=== PATIENT | male | born 2000 | race African-American/Black ===

== ENCOUNTER 2023-06-15 08:47 | Emergency (ER) | payer SELFPAY ==
--- NOTE | ~2023-06-15 | XR_ITS ---
EXAMINATION: XR CHEST CLINICAL INFORMATION: Chest and back pain COMPARISON: None available. TECHNIQUE: 2 views of the chest were obtained. FINDINGS: No significant abnormality is noted involving the heart, lungs, mediastinum, bony thorax or soft tissues. XR/XR chest 2V IMPRESSION: Unremarkable examination.
[2023-06-15 09:12] VITALS: BP 128/66; PULSE 80; RESP 16; TEMP 36.8; O2SAT 99; BMI 20.5
--- NOTE | 2023-06-15 09:17 | ECG_ITS ---
Test Reason : chest pain Blood Pressure : / mmHG Vent. Rate : 086 BPM Atrial Rate : 086 BPM P-R Int : 154 ms QRS Dur : 086 ms QT Int : 340 ms P-R-T Axes : 092 079 068 degrees QTc Int : 406 ms Normal sinus rhythm Right atrial enlargement Borderline ECG No previous ECGs available Referred By: Generic ED Physician Electronically Signed By:Dariusz Lemus
[2023-06-15 09:35] LABS: MANUAL DIFF FLAG NO
[2023-06-15 09:38] LABS: Basophils Absolute Auto 0.1 X10*3/uL (0.0-0.2); Eosinophils Absolute Auto 0.2 X10*3/uL (0.0-0.4); Eosinophils Percent Auto 4.2 % (0-4); Hematocrit 42.8 % (42.0-52.0); Hemoglobin 14.2 g/dl (14.0-18.0); Imm Gran Abs Auto 0.01 X10*3/uL (0.00-0.03); Imm Gran Pct Auto 0.2 % (0.0-0.4); Lymphocytes Absolute Auto 1.4 X10*3/uL (1.2-4.9); Lymphocytes Percent Auto 27.2 % (20-40); Mean Corpuscular HGB Conc 33.2 g/dl (31.0-36.0); Mean Corpuscular Hemoglobin 30.3 pg (27.0-33.0); Mean Corpuscular Volume 91.5 fL (80.0-98.0); Mean Platelet Volume 10.2 fL (9.4-12.4); Monocytes Absolute Auto 0.5 X10*3/uL (0.1-1.2); Monocytes Percent Auto 9.8 % (2-11); Neutrophils Absolute Auto 2.9 x10*3/uL (2.0-8.3); Neutrophils Percent Auto 57.6 % (45-73); Platelet Count 316 X10*3/uL (160-400); Red Blood Count 4.68 X10*6/uL (4.60-5.80); Red Cell Distribution Width 11.8 % (11.0-16.0)
[2023-06-15 09:55] LABS: COVID-19 Test Negative (Negative); IDNOW Serial# 08D9AD1C
[2023-06-15 09:56] LABS: IDNOW Serial# 152EDE1D; Influenza A Negative (Negative); Influenza B2 Negative (Negative)
[2023-06-15 10:01] LABS: Anion Gap 15 (12-20); Blood Urea Nitrogen 12 mg/dL (9-16); Calcium 10.6 mg/dL (8.4-10.2); Carbon Dioxide 25 mmol/L (22-29); Chloride 103 mmol/L (96-108); Creatinine Clr Calc Pharmacy 117.9; Estimated Glomerular Filt Rate > 60; Glucose Random 95 mg/dL (60-115); Potassium 4.4 mmol/L (3.3-5.1); Sodium 139 mmol/L (135-145)
[2023-06-15 11:17] LABS: Troponin-I High Sensitivity < 2.7 ng/L (<3.5-35.0)
--- NOTE | 2023-06-15 11:25 | ED_ITS ---
HPI - Chest Pain General Chief Complaint: Chest Pain Stated Complaint: Back and Chest Pain Time Seen by Provider: 06/15/23 11:25 Source: patient and family Mode of arrival: ambulatory Limitations: no limitations History of Present Illness HPI narrative: 22 yo male with PMH of chest pain/back pain seen in [place] 3 years ago with negative workup including CT scan of the chest. He was started on unknown medication. He has been here since November of last year. He notes 2 weeks of chest pain on L side radiating to back worse with movements no respiratory difficulties, no pain with eating, no night sweats no weight loss. The last time he had this he took a medication and it got better but he and his father cannot remember the name. MD complaint: chest pain Onset (ago): week(s) (2) Timing of current episode: constant Prior episodes: Yes Onset: during rest Pain location: substernal and left chest Pain radiation: back Severity: moderate Quality: aching Relieving factors: rest Exacerbating factors: movement Context: other (hx of similar episode 3 years ago) Treatment prior to arrival: none Related Data Previous Rx's Medication Instructions Recorded cyclobenzaprine 10 mg tablet 10 mg PO TID PRN muscle spasm #20 06/15/23 tabs ibuprofen 600 mg tablet 600 mg PO Q6H PRN pain #30 tabs 06/15/23 Allergies Allergy/AdvReac Type Severity Reaction Status Date / Time No Known Allergies Allergy Verified 06/15/23 09:11 Review of Systems 2 Review of Systems: Constitutional : No Weight loss, No Fever, No Chills ENT/Mouth : No sore throat, No Rhinorrhea Eyes: No Eye Pain, No Swelling Cardiovascular : pos Chest Pain, no SOB, no Dyspnea on Exertion, No Orthopnea, No Edema, No Palpitations Respiratory : No Cough, No Sputum Gastrointestinal : no Nausea, No Vomiting, No Diarrhea, No abdominal Pain, No Hematochezia, No Melena Genitourinary : No Dysuria, No Urinary Frequency Musculoskeletal : No joint pain, No Myalgias, No Joint Swelling, pos back pain Skin : No Skin Lesions, No rash Neuro : No Weakness, No Numbness, No Dizziness, No Headache Psych : No Anxiety/Panic, No Depression Heme/Lymph: No Bruising, No Lymphadenopathy Endocrine : No Polyuria, No Polydipsia All other systems reviewed and are negative [facility] Past Medical History Attestation statement: The following information was validated with the patient. Medical History Back pain Chest pain Social History Social History (Updated 06/15/23 @ 11:36 by Evelia Mejia DO) Patient Tobacco Use Status: Never used Tobacco Advance Directives: No Advance Directives Information Provided: No Physical Exam 2 Vital Signs: Vital Signs: Last Vital Signs Temp 98.7 F 06/15/23 12:30 Pulse 72 06/15/23 12:30 Resp 14 06/15/23 12:30 BP 108/62 06/15/23 12:30 Pulse Ox 100 06/15/23 12:30 O2 Del Method Room Air 06/15/23 12:30 BMI result Body Mass Index 20.5 Appearance: Alert. Oriented X3. No acute distress. Eyes: Pupils equal, round and reactive to light. ENT: Pharynx normal. Neck: Normal inspection. Neck supple. CVS: Normal heart rate and rhythm. Pulses normal. Chest: ttp along L anterior chest wall Back: ttp along both paraspinal muscles that reproduces pain Respiratory: No respiratory distress. Breath sounds normal. Abdomen: Soft and nontender. Skin: Skin warm and dry. Normal skin color. Normal skin turgor. Extremities: No lower extremity edema. No calf ttp Neuro: Oriented X 3. No motor deficit. No sensory deficit. Medications Administered Discontinued Medications Generic Name Dose Route Start Last Admin Trade Name Andrewq PRN Reason Stop Dose Admin Acetaminophen 650 mg 06/15/23 11:34 06/15/23 12:29 Acetaminophen 325 Mg Tablet PO 06/15/23 11:35 650 mg ONCE ONE Administration Cyclobenzaprine HCl 10 mg 06/15/23 11:34 06/15/23 12:29 Cyclobenzaprine Hcl 10 Mg Tablet PO 06/15/23 11:35 10 mg ONCE ONE Administration Medical Decision Making Medical Decision Making MDM Narrative: 22 yo male with 2 weeks of chest pain into back but it is all reproduceable and 3 years ago had similar event with negative CT scan in [place]. He is NV intact distal pulses intact pain is worse with movements. He has no weight loss or night sweats. It does seem MSK. He is low prob of PE. I hear no murmur on exam. At this time troponin x 1, EKG, CXR and ddimer. Hx of CT scan negative in the past and pulses intact with 2 weeks of symptoms low susp for dissection. Differential Diagnosis Differential Diagnoses: The differential diagnosis associated with the presentation includes chest pain, mass, MSK pain Admission/Observation Consideration of admission/observation: Escalation of care including admission/observation considered trop, ddimer, EKG, and chest xray negative - doubt dissection VTE Lab Data MDM Lab Attestation statement: I reviewed the patient's lab results. 06/15/23 09:29 06/15/23 09:29 Labs: Lab Results 06/15/23 06/15/23 Range/Units 09:29 12:04 WBC 5.0 (4.8-10.8) X10*3/uL RBC 4.68 (4.60-5.80) X10*6/uL Hgb 14.2 (14.0-18.0) g/dl Hct 42.8 (42.0-52.0) % MCV 91.5 (80.0-98.0) fL MCH 30.3 (27.0-33.0) pg MCHC 33.2 (31.0-36.0) g/dl RDW 11.8 (11.0-16.0) % Plt Count 316 (160-400) X10*3/uL MPV 10.2 (9.4-12.4) fL Immature Gran % (Auto) 0.2 (0.0-0.4) % Neut % (Auto) 57.6 (45-73) % Lymph % (Auto) 27.2 (20-40) % [place] % (Auto) 9.8 (2-11) % Eos % (Auto) 4.2 H (0-4) % Baso % (Auto) 1.0 (0-2) % Lymph # (Auto) 1.4 (1.2-4.9) X10*3/uL [place] # (Auto) 0.5 (0.1-1.2) X10*3/uL Eos # (Auto) 0.2 (0.0-0.4) X10*3/uL Baso # (Auto) 0.1 (0.0-0.2) X10*3/uL Abs Immat Gran (auto) 0.01 (0.00-0.03) X10*3/uL Absolute Neuts (auto) 2.9 (2.0-8.3) x10*3/uL Absolute Nucleated RBC 0.000 (0.0-0.012) X10*3/uL Nucleated RBC % (auto) 0.0 (0.0-0.2) /100WBC D-Dimer High Sensitivty < 150 NG/ML Sodium 139 (135-145) mmol/L Potassium 4.4 (3.3-5.1) mmol/L Chloride 103 (96-108) mmol/L Carbon Dioxide 25 (22-29) mmol/L Anion Gap 15 (12-20) BUN 12 (9-16) mg/dL Creatinine 1.00 (0.5-1.4) mg/dL Estim Creat Clear Calc 117.9 Estimated GFR > 60 Random Glucose 95 (60-115) mg/dL Calcium 10.6 H (8.4-10.2) mg/dL Troponin I High Sens < 2.7 (<3.5-35.0) ng/L COVID-19 (CHRISTIE) Negative (Negative) COVID-19 Clin Com See Note Influenza Type A (EMILIA) Negative (Negative) Influenza Type B (EMILIA) Negative (Negative) Influenza A & B Note See Note Independent Interpretation I performed an independent interpretation of an: EKG and Plain X-Ray (normal ) Interpretation: Rate: 86 Rhythm: NSR Hinckley: normal Normal P waves. Normal ELLIOTT. Normal QRS complex. ST T wave : normal no YOLANDA qTC: 406 prior studies: no acute ischemia The study has been interpreted contemporaneously by me. . Radiology Impression Discussion of test interpretation with radiology: I have reviewed the radiologist's reading. Independent Historian Clinical information obtained from an independent historian. History obtained from or confirmed by: Parent Prescription Management I considered prescription management with: Other Discharge Plan Discharge Clinical Impression: Atypical chest pain Patient Disposition: Home, Self-Care Instructions: Chest Pain (ED) Additional Instructions: normal EKG, heart tests, negative blood clot test in lungs, chest xray normal return for worsening pain, fevers, weight loss, night sweats, or any other concerns. Prescriptions: New cyclobenzaprine 10 mg tablet 10 mg PO TID PRN (Reason: muscle spasm) Qty: 20 0RF ibuprofen 600 mg tablet 600 mg PO Q6H PRN (Reason: pain) Qty: 30 0RF Stand Alone Forms: Work/School Release
[2023-06-15] MEDS: Cyclobenzaprine HCl 10 MG TABLET PO (12:29)
[2023-06-15] MEDS: Acetaminophen 325 MG TABLET 650 MG PO (12:29)
[2023-06-15 12:30] VITALS: BP 108/62; PULSE 72; RESP 14; TEMP 37.1; O2SAT 100
[2023-06-15 12:42] LABS: D Dimer High Sensitivity < 150 NG/ML
[2023-06-15 13:02] LABS: Alanine Aminotransferase 8 U/L (0-40); Albumin Level 4.7 g/dL (3.5-5.0); Alkaline Phosphatase 40 U/L (39-117); Aspartate Amino Transferase 15 U/L (5-37); Bilirubin Direct 0.3 mg/dL (0.0-0.5); Bilirubin Total 0.8 mg/dL (0.0-1.0); Lipase 8 U/L (8-78)
== END 2023-06-15 13:34 | disposition home or self-care (01) ==
PROVIDERS: Emergency Provider Emergency Medicine
DX: R07.89 Other chest pain (principal); Z11.52 Encounter for screening for COVID-19
CPT/HCPCS: 71046; 80048; 80076; 83690; 84484; 85025; 85379; 87502; 87635; 93005; 99283

== ENCOUNTER → 2023-06-15 09:17 | Outpatient (BNV) | payer SELFPAY | PROVIDERS: Emergency Provider Emergency Medicine; Visit Provider Internal Medicine Cardiovascular Disease | DX: R07.9 Chest pain, unspecified (principal) | CPT/HCPCS: 93010 ==

== ENCOUNTER 2023-07-08 04:12 | Inpatient (IN) | payer MEDICAID, OTHER, SELFPAY ==
[2023-07-08] VITALS (13 sets, daily range): BP systolic 108–148; BP diastolic 50–77; PULSE 70–111; RESP 14–18; TEMP 36.6–37.4; O2SAT 95–100; BMI 21.1
--- NOTE | 2023-07-08 | ECG_ITS ---
Test Reason : AMS Blood Pressure : / mmHG Vent. Rate : 094 BPM Atrial Rate : 094 BPM P-R Int : 140 ms QRS Dur : 094 ms QT Int : 340 ms P-R-T Axes : 085 068 050 degrees QTc Int : 425 ms Normal sinus rhythm Right atrial enlargement Borderline ECG When compared with ECG of 15-JUN-2023 09:21, No significant change was found Referred By: Generic ED Physician Electronically Signed By:Dariusz Lemus
--- NOTE | ~2023-07-08 | CT_ITS ---
EXAMINATION: CT HEAD WITHOUT CONTRAST CLINICAL INFORMATION: Altered mental status. COMPARISON: None available. TECHNIQUE: Contiguous axial imaging was performed from the skull base to vertex without intravenous administration of contrast. This CT examination was performed using dose optimization techniques as appropriate, variously including the following: *Automated exposure control *Adjustment of mA and/or kV according to patient size (this includes techniques or standardized protocols for targeted exams where dose is matched to indication/reason for exam; i.e. extremities or head) *Use of iterative reconstruction technique DLP: 743 mGy-cm FINDINGS: The lateral, third and fourth ventricles are normally outlined. The cortical sulci and basal cisterns are normally outlined as well. There is no acute territorial defect, hemorrhage or midline shift. There is a 2.7 cm low-density structure left middle cranial fossa with attenuation similar to CSF. The extra-axial spaces are unremarkable otherwise unremarkable. Calvarium: Intact. Maxillofacial sinuses and mastoids: There is a right frontal sinus opacity. There is ethmoid sinus mucosal thickening. CT/CT head/brain wo IV con IMPRESSION: 1. No acute intracranial pathology. 2. Left middle cranial fossa arachnoid cyst. 3. Right frontal and ethmoid sinus disease.
[2023-07-08 04:49] LABS: Glucose, Whole Blood 139 mg/dL (60-115)
[2023-07-08 04:50] LABS: Hemoglobin 14.3 g/dl (14.0-18.0); Mean Corpuscular Hemoglobin 30.4 pg (27.0-33.0); Mean Corpuscular Volume 89.2 fL (80.0-98.0); Platelet Count 323 X10*3/uL (160-400); Red Blood Count 4.71 X10*6/uL (4.60-5.80); Red Cell Distribution Width 11.9 % (11.0-16.0)
[2023-07-08 04:51] LABS: WBC ABN SCTR FOR CBC 1; White Blood Count 7.1 X10*3/uL (4.8-10.8)
[2023-07-08 05:02] LABS: Anion Gap 12 (12-20); Blood Urea Nitrogen 15 mg/dL (9-16); Calcium 9.9 mg/dL (8.4-10.2); Carbon Dioxide 24 mmol/L (22-29); Chloride 106 mmol/L (96-108); Creatinine Clr Calc Pharmacy 105.5; Estimated Glomerular Filt Rate > 60; Ethanol < 10 mg/dL; Glucose Random 123 mg/dL (60-115); Potassium 3.4 mmol/L (3.3-5.1); Sodium 139 mmol/L (135-145)
[2023-07-08 05:12] LABS: Band Neutrophils Percent 2 % (3-5); Eosinophils Absolute Manual 0.1 X10*3/uL (0.0-0.4); Eosinophils Percent Manual 1 % (0-4); Lymphocytes Absolute Manual 0.8 X10*3/uL (1.2-4.9); Lymphocytes Percent Manual 11 % (20-40); Monocytes Absolute Manual 0.6 X10*3/uL (0.1-1.2); Monocytes Percent Manual 8 % (2-11); Neutrophils Absolute Manual 5.7 X10*3/uL (2.0-8.3); Neutrophils Percent Manual 78 % (45-73)
[2023-07-08 05:13] LABS: IDNOW Serial# 152EDE1D; Influenza A Negative (Negative); Influenza B2 Negative (Negative)
[2023-07-08 05:13] LABS: Platelet Estimate NORMAL (NORMAL); Platelet Morphology Comment NORMAL; RBC Morphology NORMAL
[2023-07-08 05:14] LABS: COVID-19 Test Negative (Negative); IDNOW Serial# 08D9AD1C
[2023-07-08 05:14] LABS: Toxic Vacuolation PRESENT
--- NOTE | 2023-07-08 05:31 | ED_ITS ---
HPI - General Adult General Chief complaint: Altered Mental Status Stated complaint: pt not acting right per his father? Time Seen by Provider: 07/08/23 05:06 Source: patient and family Mode of arrival: ambulatory Limitations: no limitations History of Present Illness HPI narrative: Patient comes to the emergency room accompanied by his father. According to the patient's father, the patient has not been acting right. The father states that patient asked him a question, and then towards 3 minutes he repeats the same question again. Patient states that for about 4-5 days he has not been feeling well. Patient is still learning [place]. Patient declined an elementary school music teacher. Patient is from [facility]. Patient requesting that his father interprets. Patient denies EtOH or drug use. Related Data Previous Rx's Medication Instructions Recorded cyclobenzaprine 10 mg tablet 10 mg PO TID PRN muscle spasm #20 06/15/23 tabs ibuprofen 600 mg tablet 600 mg PO Q6H PRN pain #30 tabs 06/15/23 Allergies Allergy/AdvReac Type Severity Reaction Status Date / Time No Known Allergies Allergy Verified 06/15/23 09:11 Review of Systems 2 Review of Systems: Constitutional : No Weight loss, No Fever, No Chills, No Night Sweats, No Fatigue, patient complaining of generalized malaise ENT/Mouth : No Hearing loss, No Ear Pain, No Nasal Congestion, No Sinus Pain, No Hoarseness, No sore throat, No Rhinorrhea, No Swallowing Difficulty Eyes: No Eye Pain, No Swelling, No Redness, No Foreign Body, No Discharge, No Vision Changes Cardiovascular : No Chest Pain, No SOB, No Dyspnea on Exertion, No Orthopnea, No Edema, No Palpitations Respiratory : No Cough, No Sputum, No Wheezing, No Smoke Exposure, No Dyspnea Gastrointestinal : No Nausea, No Vomiting, No Diarrhea, No Constipation, No abdominal Pain, No Hematochezia, No Melena Genitourinary : no irregular bleeding, No Dysuria, No Urinary Frequency, No Hematuria, No Urinary Incontinence, No Urgency, No Flank Pain, No Urinary Flow Changes, No Hesitancy Musculoskeletal : No joint pain, No Myalgias, No Joint Swelling Skin : No Skin Lesions, No rash Neuro : No Weakness, No Numbness, No Paresthesias, No Loss of Consciousness, No Dizziness, No Headache patient states that he does feel that his mentation is a bit different Psych : No Anxiety/Panic, No Depression, No SI/HI/AH/VH, No Social Issues, Heme/Lymph: No Bruising, No Bleeding,No Lymphadenopathy Endocrine : No Polyuria, No Polydipsia, No Temperature Intolerance PMF Past Medical History Medical History Back pain Chest pain Social History Social History (Updated 06/15/23 @ 11:36 by Evelia Mejia DO) Patient Tobacco Use Status: Never used Tobacco Smoked in Last 30 Days: No Use of substances other than those prescribed or required for medical reasons: No Advance Directives: No Advance Directives Information Provided: No Physical Exam ED Vital Signs: Vital Signs - 24 hr 07/08/23 04:24 07/08/23 06:03 Temperature 99.3 F 98.1 F Pulse Rate 100 90 Respiratory Rate 16 18 Blood Pressure 148/76 H 136/75 Pulse Oximetry 98 100 Oxygen Delivery Method Room Air Room Air BMI result Body Mass Index 21.1 Const Other: Appearance: Alert. Oriented X3. No acute distress. Eyes: Pupils equal, round and reactive to light. ENT: Pharynx normal. Neck: Normal inspection. Neck supple. No lymph nodes noted. No crepitus CVS: Normal heart rate and rhythm. Pulses normal. Normal S1 and S2 Respiratory: No respiratory distress. Breath sounds normal. No Wheezing. No rales Abdomen: Soft and nontender. No rigidity. No distention. Skin: Skin warm and dry. Normal skin color. Normal skin turgor. Extremities: No lower extremity edema. No Lacerations. No Rash Neuro: Oriented X 3. No motor deficit. No sensory deficit. Moving all extremities. No slurred speech. CN 2 through 12 grossly intact, seems a bit slow to answer Psych: calm, cooperative, normal affect Course Course Course Narrative: -all of patient's labs pending -head CT pending -I was informed by the patient's nurse that when the patient was alone in the room, patient was answering questions appropriately. However, when the patient's father got into the room, patient started acting a bit different. Medical Decision Making Medical Decision Making MDM Narrative: -my interpretation of labs: Normal hematology, no electrolyte abnormalities -my interpretation of head CT: No abuse intracranial abnormality, -Drugs of abuse, LFTs and ammonia level pending -if LFTs are normal, patient may need a behavioral health consult -sign-out given to my colleague Dr. Lilly Lab Data MDM Lab Attestation statement: I reviewed the patient's lab results. 07/08/23 04:44 07/08/23 04:44 Labs: Lab Results 07/08/23 07/08/23 07/08/23 Range/Units 04:44 04:45 04:53 WBC 7.1 (4.8-10.8) X10*3/uL RBC 4.71 (4.60-5.80) X10*6/uL Hgb 14.3 (14.0-18.0) g/dl Hct 42.0 (42.0-52.0) % MCV 89.2 (80.0-98.0) fL MCH 30.4 (27.0-33.0) pg MCHC 34.0 (31.0-36.0) g/dl RDW 11.9 (11.0-16.0) % Plt Count 323 (160-400) X10*3/uL MPV 10.0 (9.4-12.4) fL Immature Gran % (Auto) Cancelled Neut % (Auto) Cancelled Lymph % (Auto) Cancelled Sharkey % (Auto) Cancelled Eos % (Auto) Cancelled Baso % (Auto) Cancelled Lymph # (Auto) Cancelled Sharkey # (Auto) Cancelled Eos # (Auto) Cancelled Baso # (Auto) Cancelled Abs Immat Gran (auto) Cancelled Absolute Neuts (auto) Cancelled Absolute Nucleated RBC 0.000 (0.0-0.012) X10*3/uL Nucleated RBC % (auto) 0.0 (0.0-0.2) /100WBC Neutrophils % (Manual) 78 H (45-73) % Band Neutrophils % 2 L (3-5) % Lymphocytes % (Manual) 11 L (20-40) % Monocytes % (Manual) 8 (2-11) % Eosinophils % (Manual) 1 (0-4) % Abs Neuts (Manual) 5.7 (2.0-8.3) X10*3/uL Lymphocytes # (Manual) 0.8 L (1.2-4.9) X10*3/uL Monocytes # (Manual) 0.6 (0.1-1.2) X10*3/uL Eosinophils # (Manual) 0.1 (0.0-0.4) X10*3/uL Toxic Vacuolation PRESENT Platelet Estimate NORMAL (NORMAL) Plt Morphology Comment NORMAL RBC Morphology NORMAL Sodium 139 (135-145) mmol/L Potassium 3.4 D (3.3-5.1) mmol/L Chloride 106 (96-108) mmol/L Carbon Dioxide 24 (22-29) mmol/L Anion Gap 12 (12-20) BUN 15 (9-16) mg/dL Creatinine 1.15 (0.5-1.4) mg/dL Estim Creat Clear Calc 105.5 Estimated GFR > 60 POC Glucose 139 H (60-115) mg/dL Random Glucose 123 H (60-115) mg/dL Calcium 9.9 D (8.4-10.2) mg/dL Urine Color Urine Appearance Urine pH (5.0-9.0) Ur Specific [place] (1.005-1.025) Urine Protein (Neg-Trace) mg/dL Urine Glucose (UA) (Negative) mg/dL Urine Ketones (Negative) mg/dL Urine Blood (Negative) Urine Nitrite (Negative) Ur Leukocyte Esterase (Negative) Urine RBC (0-2) /HPF Urine WBC (0-5) /HPF Ur Squamous Epith Cells (0-2) /HPF Urine Bacteria (None Seen) Hyaline Casts (0-2) /LPF Ethyl Alcohol < 10 mg/dL COVID-19 (CHRISTIE) Negative (Negative) COVID-19 Clin Com See Note Influenza Type A (EMILIA) Negative (Negative) Influenza Type B (EMILIA) Negative (Negative) Influenza A & B Note See Note 07/08/23 Range/Units 06:14 WBC (4.8-10.8) X10*3/uL RBC (4.60-5.80) X10*6/uL Hgb (14.0-18.0) g/dl Hct (42.0-52.0) % MCV (80.0-98.0) fL MCH (27.0-33.0) pg MCHC (31.0-36.0) g/dl RDW (11.0-16.0) % Plt Count (160-400) X10*3/uL MPV (9.4-12.4) fL Immature Gran % (Auto) Neut % (Auto) Lymph % (Auto) Sharkey % (Auto) Eos % (Auto) Baso % (Auto) Lymph # (Auto) Sharkey # (Auto) Eos # (Auto) Baso # (Auto) Abs Immat Gran (auto) Absolute Neuts (auto) Absolute Nucleated RBC (0.0-0.012) X10*3/uL Nucleated RBC % (auto) (0.0-0.2) /100WBC Neutrophils % (Manual) (45-73) % Band Neutrophils % (3-5) % Lymphocytes % (Manual) (20-40) % Monocytes % (Manual) (2-11) % Eosinophils % (Manual) (0-4) % Abs Neuts (Manual) (2.0-8.3) X10*3/uL Lymphocytes # (Manual) (1.2-4.9) X10*3/uL Monocytes # (Manual) (0.1-1.2) X10*3/uL Eosinophils # (Manual) (0.0-0.4) X10*3/uL Toxic Vacuolation Platelet Estimate (NORMAL) Plt Morphology Comment RBC Morphology Sodium (135-145) mmol/L Potassium (3.3-5.1) mmol/L Chloride (96-108) mmol/L Carbon Dioxide (22-29) mmol/L Anion Gap (12-20) BUN (9-16) mg/dL Creatinine (0.5-1.4) mg/dL Estim Creat Clear Calc Estimated GFR POC Glucose (60-115) mg/dL Random Glucose (60-115) mg/dL Calcium (8.4-10.2) mg/dL Urine Color Dark Yellow Urine Appearance Clear Urine pH 6.0 (5.0-9.0) Ur Specific [place] 1.025 (1.005-1.025) Urine Protein 30 (1+) H (Neg-Trace) mg/dL Urine Glucose (UA) Negative (Negative) mg/dL Urine Ketones Trace (Negative) mg/dL Urine Blood Negative (Negative) Urine Nitrite Negative (Negative) Ur Leukocyte Esterase Negative (Negative) Urine RBC 0-2 (0-2) /HPF Urine WBC 0-5 (0-5) /HPF Ur Squamous Epith Cells 0-2 (0-2) /HPF Urine Bacteria None Seen (None Seen) Hyaline Casts 0-2 (0-2) /LPF Ethyl Alcohol mg/dL COVID-19 (CHRISTIE) (Negative) COVID-19 Clin Com Influenza Type A (EMILIA) (Negative) Influenza Type B (EMILIA) (Negative) Influenza A & B Note Independent Interpretation I performed an independent interpretation of an: CT Scan Radiology Impression Discussion of test interpretation with radiology: I have reviewed the radiologist's reading. Radiologist Impression: FINDINGS: The lateral, third and fourth ventricles are normally outlined. The cortical sulci and basal cisterns are normally outlined as well. There is no acute territorial defect, hemorrhage or midline shift. There is a 2.7 cm low-density structure left middle cranial fossa with attenuation similar to CSF. The extra-axial spaces are unremarkable otherwise unremarkable. Calvarium: Intact. Maxillofacial sinuses and mastoids: There is a right frontal sinus opacity. There is ethmoid sinus mucosal thickening. CT/CT head/brain wo IV con IMPRESSION: 1. No acute intracranial pathology. 2. Left middle cranial fossa arachnoid cyst. 3. Right frontal and ethmoid sinus disease. Critical Care Time Critical Care Time Critical Care Time: Yes Total Critical Care Time: 30 Attestation: I have personally provided critical care time. Time includes review of lab data, radiology results, discussion with consultants, and monitoring for potential decompensation. Intervention performed as documented. Discharge Plan Discharge Clinical Impression: Mental status alteration Patient Disposition: Still a Patient Prescriptions: No Action cyclobenzaprine 10 mg tablet 10 mg PO TID PRN (Reason: muscle spasm) Qty: 20 0RF ibuprofen 600 mg tablet 600 mg PO Q6H PRN (Reason: pain) Qty: 30 0RF
[2023-07-08 06:21] LABS: Appearance Urine Clear; Color Urine Dark Yellow; Glucose Urine UA Negative (Negative); Leukocyte Esterase Urine Negative (Negative); Nitrite Urine Negative (Negative); Specific Gravity - Urine 1.025 (1.005-1.025); UMIC TRIGGER UACC YES; Urine Blood Negative (Negative); Urine Ketones Trace mg/dL (Negative); Urine Protein 30 (1+) mg/dL (Neg-Trace)
[2023-07-08 06:24] LABS: Bacteria Urine None Seen (None Seen); Hyaline Casts Urine 0-2 /LPF (0-2); RBC Urine 0-2 /HPF (0-2); Squamous Epithelial Cell Urine 0-2 /HPF (0-2); WBC Urine 0-5 /HPF (0-5)
[2023-07-08 07:30] LABS: Amphetamine Screen Urine Not Detected (Not Detect); Barbiturates, Urine Not Detected (Not Detect); Benzodiazepines Screen Urine Not Detected (Not Detect); Cannabinoid Screen Urine Not Detected (Not Detect); Cocaine Screen Urine Not Detected (Not Detect); Fentanyl, urine Not Detected (Not Detect); Opiate Screen Urine Not Detected (Not Detect); Phencyclidine Screen Urine Not Detected (Not Detect)
[2023-07-08 07:33] LABS: Alanine Aminotransferase 10 U/L (0-40); Albumin Level 4.6 g/dL (3.5-5.0); Alkaline Phosphatase 43 U/L (39-117); Aspartate Amino Transferase 18 U/L (5-37); Bilirubin Direct 0.3 mg/dL (0.0-0.5); Bilirubin Total 0.8 mg/dL (0.0-1.0)
--- NOTE | 2023-07-08 07:51 | PC.NURSE ---
vss and up to date at this time aside from pt being sinus tachy on the environmental services aide. ED provider bedside assessing pt. pt vigorously shaking and attempting to get back to bed. pt easily redirected back to bed. pt not responding to this RN's questions at this time. no sob/wob noted. family bedside. plan of care ongoing.
[2023-07-08] MEDS: diphenhydrAMINE HCL 50 MG/ML VIAL 12.5 MG IVPUSH (08:24)
[2023-07-08] MEDS: Haloperidol Lactate 5 MG/ML VIAL IVPUSH (08:24)
[2023-07-08] MEDS: 0.9 % Sodium Chloride 1,000 ML 999 ML IVCONT (08:24)
--- NOTE | 2023-07-08 08:24 | PC.NURSE ---
pt remains disoriented at this time. pt continuously attempting to get out of bed and rip off hospital equipment. pt's family members helping hold pt back in bed so he does not harm himself by falling out of bed. ED provider aware. pt attempted to take out IV access. IV access wrapped in gauze for safety precautions. per provider order, pt medically restrained to promote safety at this time. effectiveness pending. restraint paperwork being filled out by this RN.
[2023-07-08] MEDS: LORazepam 2 MG/ML VIAL 1 MG IVPUSH (08:25)
--- NOTE | 2023-07-08 08:39 | PC.NURSE ---
pt sleeping post medication administration. resting comfortably in no apparent distress. respirations even and unlabored. call brantley placed within reach.
--- NOTE | 2023-07-08 09:28 | PC.NURSE ---
pt continues to rest in no apparent distress at this time w/ the lights dimmed. medication administration seemed to be effective at this point in time. pt asleep. respirations remain even and unlabored. call brantley placed within reach.
--- NOTE | 2023-07-08 14:01 | PC.NURSE ---
this RN spoke w/ behavioral health specialist (Allegra) in regards to plan of care at this time. specialist states that inpatient psychiatric bed search has been facilitated at this time. vss and up to date. pt still remains disoriented. pt extremely startled when this RN attempted to put blood pressure cuff on. unable to hold conversation w/ this pt as he does not respond when questions are asked. pt seemingly lethargic. respirations remain even and unlabored. call brantley placed within reach.
--- NOTE | 2023-07-08 16:50 | PC.NURSE ---
pt ripped out IV access despite being wrapped in gauze. bleeding controlled. new IV was not placed by this RN d/t no new orders placed by MD. psychiatric bed search still in progress via CARE team at this time. pt resting comfortably in bed in no apparent distress. vss and up to date. nsr on the cardiac specialist. respirations even and unlabored. call brantley placed within reach.
[2023-07-09] VITALS (8 sets, daily range): BP systolic 96–129; BP diastolic 59–80; PULSE 66–100; RESP 12–16; TEMP 36.3–36.8; O2SAT 95–99
--- NOTE | 2023-07-09 03:34 | PC.NURSE ---
Patient resting in a stretcher bed in no apparent distress at this time, respirations are even, unlabored, lights dimmed, call brantley within patient's reach.
--- NOTE | 2023-07-09 05:31 | PC.NURSE ---
Per Dr. Gaona continuous cardiac monitoring not needed at this time, verbal order received to d/c continuous cardiac monitoring and place order for regular diet.
--- NOTE | 2023-07-09 06:38 | PC.NURSE ---
Patient is awake, alert and oriented x4, VSS. Patient denies any pain. Patient requested orange juice, provided and tolerated well. Call brantley within patient's reach, plan of care ongoing.
--- NOTE | 2023-07-09 07:06 | PC.NURSE ---
patient sitting up in bed having breakfast, patient dad at bedside. patient is alert and oriented, calm and cooperative. respirations equal and unlabored, skin warm and dry.
--- NOTE | 2023-07-09 08:48 | MHC.CARE ---
RAD Team conducted [place] bedsearch, referral being reviewed by alejandro hi, Suzanna pickens, [facility], [facility] , [facility] , [facility] , [facility],and [place]. RAD team to f/u with facilities to see outcome
--- NOTE | 2023-07-09 12:24 | PC.NURSE ---
patient rang call brantley to have this RN and talk to him, patient sitting up in bed, explained to this RN that he disobeyed his father , patient explained that he listened to his friends instead of his dad, patient did not disclose what he did to disobey his dad. patient appears to be occupied by internal stimuli, patient observed to be watching something move around the room. patient is repetitive in asking for his father to come back, this RN reassured patient that his dad will come back to visit shortly. Patient disclosed that he is hearing voices telling him to harm himself, patient states he does not want to harm himself and that he does not want to harm anyone else. patent reassured he is safe here in the ED.
[2023-07-09] MEDS: OLANZapine 10 MG TABLET PO (12:48)
--- NOTE | 2023-07-09 15:23 | PC.NURSE ---
patient sat up, ate lunch, family came to visit, patient states he had a good visit with family. patient has remained calm and cooperative
--- NOTE | 2023-07-09 20:58 | PC.NURSE ---
Spoke to charge, no sitter needed for patient . Pt denies SI./HI
--- NOTE | 2023-07-09 21:58 | MHC.EDTECH ---
s pct assumed care of Patient at 2200 ,vitals taken ,urinal empty 900 ml out put ,Patient awake and is alert ,resting quietly in bed .
--- NOTE | 2023-07-09 23:37 | MHC.EDTECH ---
This tech took over care of patient at 2300,hourly rounds completed,patient is resting comfortably at this time and call brantley in reach
[2023-07-10 01:31] VITALS: BP 104/69; PULSE 87; RESP 16; TEMP 36.6; O2SAT 100
--- NOTE | 2023-07-10 01:32 | MHC.EDTECH ---
Hourly rounds and vitals completed,patient is resting comfortably and call brantley in reach
[2023-07-10 03:01] LABS: Syphilis Screen Nonreactive (Nonreactive)
[2023-07-10 03:13] LABS: HBS Num1 116.91 mIU/mL (0-7.99); HBc Num1 0.28 S/CO (0.00-0.79); HIV AB/AG Nonreactive (Nonreactive); HIV Num 1 0.05 S/CO (0.00-0.99); Hepatitis A Antibody IgM 0.22 Index (0-0.79); Hepatitis B Core Antibody Nonreactive (Nonreactive); Hepatitis B Surface Antigen Negative (Negative); ~HepC Num1 0.29 S/CO (0.00-0.79); ~Hepatitis A Antibody IgM Nonreactive (Nonreactive); ~Hepatitis B Surface Antibody REACTIVE (Nonreactive); ~Hepatitis C Antibody Nonreactive (Nonreactive)
--- NOTE | 2023-07-10 03:38 | MHC.EDTECH ---
Hourly rounds completed,patient resting at this time and call brantley within reach
[2023-07-10 05:38] VITALS: RESP 18
--- NOTE | 2023-07-10 05:39 | MHC.EDTECH ---
Hourly rounds completed,patient refused vitals ,RN was made aware,Resp.rate WNL,and patient is resting at this time.Call brantley in reach
--- NOTE | 2023-07-10 10:29 | MHC.CARE ---
RAD Team conducted statewide bedsearch, referral being reviewed by alejandro hi, [facility], [facility], [facility] , [facility] , [facility] , [facility] and [place]. RAD team to f/u with facilities to see outcome
[2023-07-10 11:01] LABS: COVID-19 Test Negative (Negative); IDNOW Serial# 9DB6401D
--- NOTE | 2023-07-10 11:36 | PC.NURSE ---
assumed care of pt at 0700. pt awake and alert, soft spoken. ate breakfast this morning and then called t/w into room to ask why am I here? I do not know why I am here. pt now resting quietly in bed, eyes closed, rr even/unlabored. awaiting for placement as statewide bed search is being performed. call brantley within reach. plan of care ongoing.
--- NOTE | 2023-07-10 15:40 | PC.NURSE ---
pt father, Rodrick, sts pt is acting more normal today. brought in [facility] for pt. pt appears well. plan of care ongoing.
[2023-07-10 15:44] VITALS: BP 110/70; PULSE 100; RESP 16; TEMP 36.2; O2SAT 97
[2023-07-10 17:25] VITALS: BP 117/67; PULSE 103; RESP 16; TEMP 37.3; O2SAT 98
--- NOTE | 2023-07-10 17:55 | PC.NURSE ---
Pt refused flu vaccine
--- NOTE | 2023-07-10 18:01 | PC.ADMIT ---
Addendum entered by Rebecca Rosa RN 07/10/23 19:36: Pt received IV Ativan and Haldol on 07/08. Original Note: Jordan is a 22-year-old male admitted from [facility] main ED to M3 on a CV for treatment of unspecified psychosis. Pt immediately signed 3-day. Tox screen negative. Pt relocated from [facility] to the 6 months ago. Per crisis eval, pt was brought into ED by his family who reported pt has been forgetful, repeating questions, and being uncoordinated/unsteady on his feet. When pt was admitted to the ED, pt was disoriented and attempting to pull out his IV and was given Haldol 5mg and Ativan 1mg IV as a restraint on 07/10. When pt arrived to M3, pt was alert, oriented, pleasant and cooperative. Affect was flat. Pt lacks insight into situation and doesn't know why he's here. Pt denies any medical issues. Pt denies substance use and alcohol use. Thought process is linear and organized. Pt reports difficulty sleeping. Pt does not have any outside providers. Pt denies SI/HI/AH/VH but will reach out to staff if thoughts occur. Pt placed on 15 minute safety checks.
[2023-07-10 18:32] VITALS: BMI 19.6
[2023-07-11 07:59] VITALS: BP 115/77; PULSE 99; RESP 18; TEMP 36.2; O2SAT 99
[2023-07-11 08:21] LABS: Glucose, Whole Blood 82 mg/dL (60-115)
[2023-07-11 08:27] LABS: Estimated Average Glucose 74 mg/dL; Hemoglobin A1c % 4.2 % (<6.0)
[2023-07-11 08:39] LABS: Cholesterol 161 mg/dL (<200); HDL Cholesterol 37 mg/dL (>40); LDL Cholesterol Calculated 109 mg/dL (<100); Triglycerides 76 mg/dL (<150)
[2023-07-11 08:56] LABS: Free T4 (Free Thyroxine) 1.18 ng/dL (0.71-1.85); Thyroid Stimulating Hormone 0.63 uIU/mL (0.32-4.0)
[2023-07-11 09:08] LABS: Folate 11.2 ng/mL (> or = 4.0); Vitamin B12 803 pg/mL (200-900)
[2023-07-11] MEDS: Acetaminophen 325 MG TABLET 650 MG PO (12:56)
[2023-07-11] MEDS: HaloperidoL 1 MG TABLET 2 MG PO (12:56)
--- NOTE | 2023-07-11 14:49 | HO.PSYADMNOT ---
HPI Date of Service: 07/11/23 Chief Complaint: pt not acting right per his father? HPI Narrative: per CARE team nancy tracy self-presented 07/08 to [facility] ED with family members with family c/o pt's acting funny over the past 4-5 days. family reported pt has been forgetful, asking for questions to be repeated, unsteady on his feet, uncoordinated. pt was chemically restrained with haldol 5 and ativan 1 IV for safety (pt was attempting to pull out IV, get out of bed, appeared disoriented). CARE team was initially unable to engage with pt, who stared blankly at CARE team staff in response to questions. by 07/10, pt was able to speak with CARE team staff. he denied psych Sx and reported being in a good mood. he did not recall the events leading to his hospitalization and did not know why he was in the hospital. on interview with MD on psych unit, pt spoke haltingly, hesitantly, and without confidence. he reported his mood as not good but denied any safety concerns or psychotic symptoms presently. he did reference he was kind of hearing something recently. he was able to say his sleep was abnormal and he had not been eating the past several days. he denied any psych Hx. he was amenable to taking psychiatric medication and was started on haldol 5 mg QHS for psychosis. Past Psychiatric History: hosps: 1 prior in [facility] in 2021 SA: denies SIB: denies HIB: denies outpt Tx: denies Medical Evaluation Reviewed: Yes [facility] Medical History Back pain Chest pain Family History: denies Social History: born and raised in [facility] with mother and sisters. father left for [place] when pt was 4 yo. [place] 6 [place] prior to presentation. living with his father here. was planning to join the . Substance History: denies the use of all substances, including tobacco/nicotine, alcohol, and cannabis. utox NEG. Trauma History: denies Diagnostics Vital Signs (24Hr): Vital Signs - 24 hr 07/10/23 15:44 07/10/23 17:25 07/11/23 07:59 Temperature 97.2 F 99.1 F 97.2 F Pulse Rate 100 103 H 99 Respiratory Rate 16 16 18 Blood Pressure 110/70 117/67 115/77 Pulse Oximetry 97 98 99 Oxygen Delivery Method Room Air Room Air Room Air BMI result Body Mass Index 19.6 Labs 07/08/23 04:44 07/08/23 04:44 Labs: Laboratory Results - last 48 hr 07/08/23 07/10/23 07/11/23 06:14 10:24 08:10 POC Glucose Estimat Average Glucose 74 Hemoglobin A1c % 4.2 Triglycerides 76 Cholesterol 161 LDL Cholesterol, Calc 109 H HDL Cholesterol 37 L Vitamin B12 803 Folate 11.2 TSH 0.63 Free T4 1.18 T.pallidum Ab (EIA) Nonreactive COVID-19 (CHRISTIE) Negative COVID-19 Clin Com See Note Hepatitis A IgM Ab Nonreactive Hep Bs Antigen Negative Hep Bs Antibody REACTIVE Hep B Core Total Ab Nonreactive Hepatitis C Ab (EIA) Nonreactive HIV 1&2 Ab/P24 Ag 4thGn Nonreactive 07/11/23 08:16 POC Glucose 82 Estimat Average Glucose Hemoglobin A1c % Triglycerides Cholesterol LDL Cholesterol, Calc HDL Cholesterol Vitamin B12 Folate TSH Free T4 T.pallidum Ab (EIA) COVID-19 (CHRISTIE) COVID-19 Clin Com Hepatitis A IgM Ab Hep Bs Antigen Hep Bs Antibody Hep B Core Total Ab Hepatitis C Ab (EIA) HIV 1&2 Ab/P24 Ag 4thGn Imaging Radiology Impressions: ITS Impressions Head CT 07/08/23 05:40 IMPRESSION: 1. No acute intracranial pathology. 2. Left middle cranial fossa arachnoid cyst. 3. Right frontal and ethmoid sinus disease. Meds/Allergies Allergies Allergies Allergy/AdvReac Type Severity Reaction Status Date / Time No Known Allergies Allergy Verified 06/15/23 09:11 Mental Status Exam Mental Status Exam Narrative: dressed in [facility]. adequate hygiene. cooperative. no PMA/PMR. speech slow, halting, monotone, decr amount, decr loudness. thoughts apparently linear and logical. affect blunted. mood not good. denies SI/SIBI/HI/AVH. Assessment & Plan Assessment & Plan (1) Psychosis: Status: Acute Code(s): F29 - Unspecified psychosis not due to a substance or known physiological condition Plan psychosis NOS start haldol 5 mg QHS add benadryl 50 mg QHS for EPS prophylaxis due to patient's age and gender Patient educated on: diagnosis and medication risk/benefits Reason for continued inpatient stay Substantial Risk for: inability to function and rapid decompensation Statement Statement: I have reviewed the history and physical and performed a pertinent examination on my patient. No changes have occurred unless specified. If the History and Physical was not performed prior to admission, the Hospitalist's service will be consulted for completing the admission physical. Time Spent With Patient Time: Total time managing care of this patient today __55__ minutes.
[2023-07-11 18:00] VITALS: BP 100/56; PULSE 80; RESP 14; TEMP 36.6; O2SAT 100
[2023-07-11] MEDS: HaloperidoL 5 MG TABLET PO (20:45)
[2023-07-11] MEDS: diphenhydrAMINE HCL 25 MG CAPSULE 50 MG PO (20:45)
[2023-07-12] MEDS: OLANZapine ODT 10 MG TAB.RAPDIS 5 MG TRANSLINGU (06:05)
[2023-07-12] MEDS: hydrOXYzine HCL 25 MG TABLET PO ×2 (06:06→17:51)
[2023-07-12 08:11] VITALS: BP 125/80; PULSE 80; RESP 14; TEMP 35.8; O2SAT 100
[2023-07-12 08:38] LABS: Glucose, Whole Blood 79 mg/dL (60-115)
--- NOTE | 2023-07-12 10:05 | HO.PSYCHPN ---
Subjective Subjective Date of Service: 07/12/23 Reason For Visit: pt not acting right per his father? Subjective Notes: 3 Day Interim History: Reviewed with Dr. Montague. Keeping to self. Pt reports feeling sad and nervous today; pt stated, I feel this way because I've never been to a place like this before . Pt reported he came to the hospital because I was talking to myself. That was the first time I had voices. I was talking to my sister but she lives in [facility]. My dad saw me talking to no one . Pt reports he is hoping to return home soon. denies SI/HI/VH/AH. Medication Compliance: Yes Side effects from medications: No Attending Groups: Intermittent Review of Systems Constitutional: Reports as per HPI Eyes: Reports as per HPI Reports as per HPI Cardiovascular: Reports as per HPI Respiratory: Reports as per HPI Gastrointestinal: Reports as per HPI Genitourinary: Reports as per HPI Musculoskeletal: Reports as per HPI Skin/Breast: Reports as per HPI Reports as per HPI Psychiatric: Reports as per HPI Endocrine: Reports as per HPI Hematologic/Lymphatic: Reports as per HPI Allergic/Immunologic: Reports as per HPI Mental Status Exam Mental Status Exam Narrative: Pt behavior is cooperative and calm; dressed in hospital attire; mood is described as sad and nervous ; eye contact appropriate; Speech is normal rate, soft spoken and not pressured; focused on discharge; denies SI/HI/VH/AH. Diagnostics Vital Signs (24Hr): Vital Signs - 24 hr 07/11/23 18:00 07/12/23 08:11 Temperature 97.9 F 96.4 F L Pulse Rate 80 80 Respiratory Rate 14 14 Blood Pressure 100/56 L 125/80 Pulse Oximetry 100 100 Oxygen Delivery Method Room Air Room Air BMI result Body Mass Index 19.6 Labs 07/08/23 04:44 07/08/23 04:44 Labs: Laboratory Results - last 48 hr 07/10/23 07/11/23 07/11/23 10:24 08:10 08:16 POC Glucose 82 Estimat Average Glucose 74 Hemoglobin A1c % 4.2 Triglycerides 76 Cholesterol 161 LDL Cholesterol, Calc 109 H HDL Cholesterol 37 L Vitamin B12 803 Folate 11.2 TSH 0.63 Free T4 1.18 COVID-19 (CHRISTIE) Negative COVID-19 Clin Com See Note 07/12/23 08:17 POC Glucose 79 Estimat Average Glucose Hemoglobin A1c % Triglycerides Cholesterol LDL Cholesterol, Calc HDL Cholesterol Vitamin B12 Folate TSH Free T4 COVID-19 (CHRISTIE) COVID-19 Clin Com Imaging Radiology Impressions: ITS Impressions Head CT 07/08/23 05:40 IMPRESSION: 1. No acute intracranial pathology. 2. Left middle cranial fossa arachnoid cyst. 3. Right frontal and ethmoid sinus disease. Medications Medications Current Medications Acetaminophen (Acetaminophen 325 Mg Tablet) 650 mg PO Q6H PRN PRN Reason: Headache/Pain Mild Scale (1-3) Last Admin: 07/11/23 12:56 Dose: 650 mg Al Hydroxide/Mg Hydroxide (Magnesium Hydrox/Alum Hydrox 30 Ml Oral.Susp) 30 ml PO Q6H PRN PRN Reason: Heartburn/Nausea Diphenhydramine HCl (Diphenhydramine Hcl 25 Mg Capsule) 50 mg PO BEDTIME SERGIO Last Admin: 07/11/23 20:45 Dose: 50 mg Haloperidol (Haloperidol 5 Mg Tablet) 5 mg PO BEDTIME SERGIO Last Admin: 07/11/23 20:45 Dose: 5 mg Hydroxyzine HCl (Hydroxyzine Hcl 25 Mg Tablet) 25 mg PO Q6H PRN PRN Reason: Anxiety Last Admin: 07/12/23 06:06 Dose: 25 mg Magnesium Hydroxide (Milk Of Magnesia 30 Ml Oral.Susp) 30 ml PO DAILY PRN PRN Reason: Constipation Nicotine Polacrilex (Nicotine Polacrilex 2 Mg Gum) 4 mg BUCCAL Q2H PRN PRN Reason: Nicotine Cravings Olanzapine (Olanzapine Odt 10 Mg Tab.Rapdis) 5 mg TRANSLINGU Q6H PRN PRN Reason: agitation Last Admin: 07/12/23 06:05 Dose: 5 mg Trazodone HCl (Trazodone Hcl 50 Mg Tablet) 50 mg PO BEDTIME MRX1 PRN PRN Reason: Insomnia Allergies Allergies Allergy/AdvReac Type Severity Reaction Status Date / Time No Known Allergies Allergy Verified 06/15/23 09:11 Assessment & Plan Assessment & Plan (1) Psychosis: Status: Acute Code(s): F29 - Unspecified psychosis not due to a substance or known physiological condition Plan psychosis NOS start haldol 5 mg QHS add benadryl 50 mg QHS for EPS prophylaxis due to patient's age and gender 07/12: Continue current tx plan. Patient educated on: diagnosis and medication risk/benefits Informed Consent: understands Reason for continued inpatient stay Substantial Risk for: med/psych decompensation Time Spent With Patient Time: Total time managing care of this patient today _20___ minutes.
[2023-07-12 20:00] VITALS: BP 130/81; PULSE 79; RESP 16; TEMP 36.5; O2SAT 100
[2023-07-12] MEDS: diphenhydrAMINE HCL 25 MG CAPSULE 50 MG PO (21:36)
[2023-07-12] MEDS: HaloperidoL 5 MG TABLET PO (21:36)
[2023-07-13 07:05] VITALS: BP 134/81; PULSE 64; TEMP 36.1; O2SAT 99
[2023-07-13 08:06] LABS: Glucose, Whole Blood 69 mg/dL (60-115)
--- NOTE | 2023-07-13 09:01 | HO.PSYCHPN ---
Subjective Subjective Date of Service: 07/13/23 Reason For Visit: pt not acting right per his father? Subjective Notes: 3 Day Interim History: Reviewed with Dr. Montague. Keeping to self. attending groups. pt reports feeling good today; pt stated, I feel like the medicine is helping with my stress . denies SI/HI/VH/AH. Medication Compliance: Yes Side effects from medications: No Attending Groups: Yes Review of Systems Constitutional: Reports as per HPI Eyes: Reports as per HPI Reports as per HPI Cardiovascular: Reports as per HPI Respiratory: Reports as per HPI Gastrointestinal: Reports as per HPI Genitourinary: Reports as per HPI Musculoskeletal: Reports as per HPI Skin/Breast: Reports as per HPI Reports as per HPI Psychiatric: Reports as per HPI Endocrine: Reports as per HPI Hematologic/Lymphatic: Reports as per HPI Allergic/Immunologic: Reports as per HPI Mental Status Exam Mental Status Exam Narrative: Pt behavior is cooperative and calm; dressed in hospital attire; mood is described as okay ; eye contact appropriate; Speech is normal rate, soft spoken and not pressured; focused on discharge; denies SI/HI/VH/AH. Diagnostics Vital Signs (24Hr): Vital Signs - 24 hr 07/12/23 20:00 07/13/23 07:05 Temperature 97.7 F 96.9 F Pulse Rate 79 64 Respiratory Rate 16 Blood Pressure 130/81 134/81 Pulse Oximetry 100 99 Oxygen Delivery Method Room Air Room Air BMI result Body Mass Index 20.0 Labs 07/08/23 04:44 07/08/23 04:44 Labs: Laboratory Results - last 48 hr 07/11/23 07/12/23 07/13/23 08:10 08:17 07:39 POC Glucose 79 69 Vitamin B12 803 Folate 11.2 Imaging Radiology Impressions: ITS Impressions Head CT 07/08/23 05:40 IMPRESSION: 1. No acute intracranial pathology. 2. Left middle cranial fossa arachnoid cyst. 3. Right frontal and ethmoid sinus disease. Medications Medications Current Medications Acetaminophen (Acetaminophen 325 Mg Tablet) 650 mg PO Q6H PRN PRN Reason: Headache/Pain Mild Scale (1-3) Last Admin: 07/11/23 12:56 Dose: 650 mg Al Hydroxide/Mg Hydroxide (Magnesium Hydrox/Alum Hydrox 30 Ml Oral.Susp) 30 ml PO Q6H PRN PRN Reason: Heartburn/Nausea Diphenhydramine HCl (Diphenhydramine Hcl 25 Mg Capsule) 50 mg PO BEDTIME SERGIO Last Admin: 07/12/23 21:36 Dose: 50 mg Haloperidol (Haloperidol 5 Mg Tablet) 5 mg PO BEDTIME SERGIO Last Admin: 07/12/23 21:36 Dose: 5 mg Hydroxyzine HCl (Hydroxyzine Hcl 25 Mg Tablet) 25 mg PO Q6H PRN PRN Reason: Anxiety Last Admin: 07/12/23 17:51 Dose: 25 mg Magnesium Hydroxide (Milk Of Magnesia 30 Ml Oral.Susp) 30 ml PO DAILY PRN PRN Reason: Constipation Nicotine Polacrilex (Nicotine Polacrilex 2 Mg Gum) 4 mg BUCCAL Q2H PRN PRN Reason: Nicotine Cravings Olanzapine (Olanzapine Odt 10 Mg Tab.Rapdis) 5 mg TRANSLINGU Q6H PRN PRN Reason: agitation Last Admin: 07/12/23 06:05 Dose: 5 mg Trazodone HCl (Trazodone Hcl 50 Mg Tablet) 50 mg PO BEDTIME MRX1 PRN PRN Reason: Insomnia Allergies Allergies Allergy/AdvReac Type Severity Reaction Status Date / Time No Known Allergies Allergy Verified 06/15/23 09:11 Assessment & Plan Assessment & Plan (1) Psychosis: Status: Acute Code(s): F29 - Unspecified psychosis not due to a substance or known physiological condition Plan psychosis NOS start haldol 5 mg QHS add benadryl 50 mg QHS for EPS prophylaxis due to patient's age and gender 07/12: Continue current tx plan. 07/13: continue current tx plan. Patient educated on: diagnosis and medication risk/benefits Informed Consent: understands Reason for continued inpatient stay Substantial Risk for: med/psych decompensation Time Spent With Patient Time: Total time managing care of this patient today _20___ minutes.
[2023-07-13] MEDS: OLANZapine ODT 10 MG TAB.RAPDIS 5 MG TRANSLINGU (09:41)
[2023-07-13 21:15] VITALS: BP 114/57; PULSE 75; RESP 16; TEMP 36.1; O2SAT 100
[2023-07-13] MEDS: HaloperidoL 5 MG TABLET PO (21:27)
[2023-07-13] MEDS: diphenhydrAMINE HCL 25 MG CAPSULE 50 MG PO (21:27)
[2023-07-14 07:40] VITALS: BP 122/66; PULSE 73; RESP 16; TEMP 36; O2SAT 100
[2023-07-14 08:07] LABS: Glucose, Whole Blood 68 mg/dL (60-115)
--- NOTE | 2023-07-14 12:38 | HO.PSYCHPN ---
Subjective Subjective Date of Service: 07/14/23 Reason For Visit: pt not acting right per his father? Subjective Notes: Conditional Voluntary Interim History: The nursing staff reported the patient signed a 3 day notice, he stated that he feels overwhelmed here. The patient has been quiet withdrawn attending to groups, playing cards with peers. On interview the patient denies new symptoms compliant with treatment, no side effects. Mental Status Exam Mental Status Exam Patient Appearance: Well Grooomed Patient Orientation: Person and Situation Level of Consciousness: Awake and Appropriate Patient Behavior: Guarded and Passive Mood Description: Calm Affect Description: Constricted Patient Cognition Impaired: Yes Ability to Follow Directions: Good Speech Pattern: Clear Hallucinations: None Delusions: Not Present Thought Process: Linear Thought Content: positive for [place] and positive for Poverty of Content Judgement: Fair Diagnostics Vital Signs (24Hr): Vital Signs - 24 hr 07/13/23 21:15 07/14/23 07:40 Temperature 97.0 F 96.8 F Pulse Rate 75 73 Respiratory Rate 16 16 Blood Pressure 114/57 L 122/66 Pulse Oximetry 100 100 Oxygen Delivery Method Room Air Room Air BMI result Body Mass Index 20.0 Labs 07/08/23 04:44 07/08/23 04:44 Labs: Laboratory Results - last 48 hr 07/13/23 07/14/23 07:39 07:49 POC Glucose 69 68 Imaging Radiology Impressions: ITS Impressions Head CT 07/08/23 05:40 IMPRESSION: 1. No acute intracranial pathology. 2. Left middle cranial fossa arachnoid cyst. 3. Right frontal and ethmoid sinus disease. Medications Medications Current Medications Acetaminophen (Acetaminophen 325 Mg Tablet) 650 mg PO Q6H PRN PRN Reason: Headache/Pain Mild Scale (1-3) Last Admin: 07/11/23 12:56 Dose: 650 mg Al Hydroxide/Mg Hydroxide (Magnesium Hydrox/Alum Hydrox 30 Ml Oral.Susp) 30 ml PO Q6H PRN PRN Reason: Heartburn/Nausea Diphenhydramine HCl (Diphenhydramine Hcl 25 Mg Capsule) 50 mg PO BEDTIME SERGIO Last Admin: 07/13/23 21:27 Dose: 50 mg Haloperidol (Haloperidol 5 Mg Tablet) 5 mg PO BEDTIME SERGIO Last Admin: 07/13/23 21:27 Dose: 5 mg Hydroxyzine HCl (Hydroxyzine Hcl 25 Mg Tablet) 25 mg PO Q6H PRN PRN Reason: Anxiety Last Admin: 07/12/23 17:51 Dose: 25 mg Magnesium Hydroxide (Milk Of Magnesia 30 Ml Oral.Susp) 30 ml PO DAILY PRN PRN Reason: Constipation Nicotine Polacrilex (Nicotine Polacrilex 2 Mg Gum) 4 mg BUCCAL Q2H PRN PRN Reason: Nicotine Cravings Olanzapine (Olanzapine Odt 10 Mg Tab.Rapdis) 5 mg TRANSLINGU Q6H PRN PRN Reason: agitation Last Admin: 07/13/23 09:41 Dose: 5 mg Trazodone HCl (Trazodone Hcl 50 Mg Tablet) 50 mg PO BEDTIME MRX1 PRN PRN Reason: Insomnia Allergies Allergies Allergy/AdvReac Type Severity Reaction Status Date / Time No Known Allergies Allergy Verified 06/15/23 09:11 Assessment & Plan Assessment & Plan (1) Psychosis: Status: Acute Code(s): F29 - Unspecified psychosis not due to a substance or known physiological condition Plan psychosis NOS start haldol 5 mg QHS add benadryl 50 mg QHS for EPS prophylaxis due to patient's age and gender 07/12: Continue current tx plan. 07/13: continue current tx plan. 07/14 continue same treatment Reason for continued inpatient stay Substantial Risk for: inability to function, rapid decompensation and med/psych decompensation Time Spent With Patient Time: Total time managing care of this patient today __20__ minutes.
[2023-07-14] MEDS: OLANZapine ODT 10 MG TAB.RAPDIS 5 MG TRANSLINGU (12:42)
[2023-07-14 21:00] VITALS: BP 117/64; PULSE 88; RESP 14; TEMP 36.8; O2SAT 99
[2023-07-14] MEDS: diphenhydrAMINE HCL 25 MG CAPSULE 50 MG PO (23:03)
[2023-07-14] MEDS: HaloperidoL 5 MG TABLET PO (23:04)
[2023-07-15 07:45] VITALS: BP 111/59; PULSE 87; RESP 14; TEMP 36.5; O2SAT 100
[2023-07-15 08:18] LABS: Glucose, Whole Blood 75 mg/dL (60-115)
--- NOTE | 2023-07-15 15:30 | HO.PSYCHPN ---
Subjective Subjective Date of Service: 07/15/23 Reason For Visit: pt not acting right per his father? Subjective Notes: Conditional Voluntary Interim History: The nursing staff reported the patient had been common cooperative, future oriented visible in the unit. No new changes in mental status. On interview the patient denies new symptoms. Mental Status Exam Mental Status Exam Patient Appearance: Well Grooomed and Appropriate Patient Orientation: Person and Situation Level of Consciousness: Awake and Appropriate Patient Behavior: Guarded and Passive Mood Description: Withdrawn Affect Description: Constricted Patient Cognition Impaired: Yes Ability to Follow Directions: Good Speech Pattern: Clear Hallucinations: None Delusions: Not Present Thought Process: Linear Thought Content: positive for [place] and positive for Poverty of Content Judgement: Fair Diagnostics Vital Signs (24Hr): Vital Signs - 24 hr 07/14/23 21:00 07/15/23 07:45 Temperature 98.3 F 97.7 F Pulse Rate 88 87 Respiratory Rate 14 14 Blood Pressure 117/64 111/59 L Pulse Oximetry 99 100 Oxygen Delivery Method Room Air Room Air BMI result Body Mass Index 20.0 Labs 07/08/23 04:44 07/08/23 04:44 Labs: Laboratory Results - last 48 hr 07/14/23 07/15/23 07:49 08:13 POC Glucose 68 75 Imaging Radiology Impressions: ITS Impressions Head CT 07/08/23 05:40 IMPRESSION: 1. No acute intracranial pathology. 2. Left middle cranial fossa arachnoid cyst. 3. Right frontal and ethmoid sinus disease. Medications Medications Current Medications Acetaminophen (Acetaminophen 325 Mg Tablet) 650 mg PO Q6H PRN PRN Reason: Headache/Pain Mild Scale (1-3) Last Admin: 07/11/23 12:56 Dose: 650 mg Al Hydroxide/Mg Hydroxide (Magnesium Hydrox/Alum Hydrox 30 Ml Oral.Susp) 30 ml PO Q6H PRN PRN Reason: Heartburn/Nausea Diphenhydramine HCl (Diphenhydramine Hcl 25 Mg Capsule) 50 mg PO BEDTIME SERGIO Last Admin: 07/14/23 23:03 Dose: 50 mg Haloperidol (Haloperidol 5 Mg Tablet) 5 mg PO BEDTIME SERGIO Last Admin: 07/14/23 23:04 Dose: 5 mg Hydroxyzine HCl (Hydroxyzine Hcl 25 Mg Tablet) 25 mg PO Q6H PRN PRN Reason: Anxiety Last Admin: 07/12/23 17:51 Dose: 25 mg Magnesium Hydroxide (Milk Of Magnesia 30 Ml Oral.Susp) 30 ml PO DAILY PRN PRN Reason: Constipation Nicotine Polacrilex (Nicotine Polacrilex 2 Mg Gum) 4 mg BUCCAL Q2H PRN PRN Reason: Nicotine Cravings Olanzapine (Olanzapine Odt 10 Mg Tab.Rapdis) 5 mg TRANSLINGU Q6H PRN PRN Reason: agitation Last Admin: 07/14/23 12:42 Dose: 5 mg Trazodone HCl (Trazodone Hcl 50 Mg Tablet) 50 mg PO BEDTIME MRX1 PRN PRN Reason: Insomnia Allergies Allergies Allergy/AdvReac Type Severity Reaction Status Date / Time No Known Allergies Allergy Verified 06/15/23 09:11 Assessment & Plan Assessment & Plan (1) Psychosis: Status: Acute Code(s): F29 - Unspecified psychosis not due to a substance or known physiological condition Plan psychosis NOS start haldol 5 mg QHS add benadryl 50 mg QHS for EPS prophylaxis due to patient's age and gender 07/12: Continue current tx plan. 07/13: continue current tx plan. 07/14 continue same treatment 07/15 keep same treatment Reason for continued inpatient stay Substantial Risk for: inability to function, rapid decompensation and med/psych decompensation Time Spent With Patient Time: Total time managing care of this patient today __20__ minutes.
[2023-07-15 20:08] VITALS: BP 132/68; PULSE 90; TEMP 36.7; O2SAT 100
[2023-07-15] MEDS: diphenhydrAMINE HCL 25 MG CAPSULE 50 MG PO (21:10)
[2023-07-15] MEDS: HaloperidoL 5 MG TABLET PO (21:11)
[2023-07-16 07:13] VITALS: BP 139/78; PULSE 70; RESP 16; TEMP 36.5; O2SAT 100
--- NOTE | 2023-07-16 10:30 | PM.PSYDC ---
DS: Providers Provider Date of Service: 07/16/23 Date of admission: 07/10/23 16:26 Primary care physician: Unknown Physician DS: Diagnosis Discharge Diagnosis (1) Psychosis: Status: Acute DS: Medications Discharge Medications Home Medications: Previous Rx's Medication Instructions Recorded cyclobenzaprine 10 mg tablet 10 mg PO TID PRN muscle spasm #20 06/15/23 tabs ibuprofen 600 mg tablet 600 mg PO Q6H PRN pain #30 tabs 06/15/23 diphenhydramine HCl 25 mg capsule 50 mg (2 x 25 mg) PO BEDTIME 30 07/16/23 days #60 caps haloperidol 5 mg tablet 5 mg PO BEDTIME 30 days #30 tabs 07/16/23 Mental Status Exam Mental Status Exam Narrative: dressed in street clothes. adequate hygiene. cooperative. no PMA/PMR. speech slow, halting, monotone, decr amount, decr loudness. thoughts linear and logical. affect blunted. mood good. denies SI/SIBI/HI/AVH. Data Data Completed and Pending Completed studies during hospitalization [Text1]: 07/08/23 07/10/23 07/11/23 06:14 10:24 08:10 POC Glucose Estimat Average Glucose 74 Hemoglobin A1c % 4.2 Triglycerides 76 Cholesterol 161 LDL Cholesterol, Calc 109 H HDL Cholesterol 37 L Vitamin B12 803 Folate 11.2 TSH 0.63 Free T4 1.18 T.pallidum Ab (EIA) Nonreactive COVID-19 (CH[facility]STIE) Negative COVID-19 Clin Com See Note Hepatitis A IgM Ab Nonreactive Hep Bs Antigen Negative Hep Bs Antibody REACTIVE Hep B Core Total Ab Nonreactive Hepatitis C Ab (EIA) Nonreactive HIV 1&2 Ab/P24 Ag 4thGn Nonreactive 07/11/23 07/12/23 07/13/23 08:16 08:17 07:39 POC Glucose 82 79 69 Estimat Average Glucose Hemoglobin A1c % Triglycerides Cholesterol LDL Cholesterol, Calc HDL Cholesterol Vitamin B12 Folate TSH Free T4 T.pallidum Ab (EIA) COVID-19 (CHRISTIE) COVID-19 Clin Com Hepatitis A IgM Ab Hep Bs Antigen Hep Bs Antibody Hep B Core Total Ab Hepatitis C Ab (EIA) HIV 1&2 Ab/P24 Ag 4thGn 07/14/23 07/15/23 07:49 08:13 POC Glucose 68 75 Estimat Average Glucose Hemoglobin A1c % Triglycerides Cholesterol LDL Cholesterol, Calc HDL Cholesterol Vitamin B12 Folate TSH Free T4 T.pallidum Ab (EIA) COVID-19 ([facility]STIE) COVID-19 Clin Com Hepatitis A IgM Ab Hep Bs Antigen Hep Bs Antibody Hep B Core Total Ab Hepatitis C Ab (EIA) HIV 1&2 Ab/P24 Ag 4thGn Imaging Diagnostic Imaging Impressions Head CT 07/08/23 05:40 IMPRESSION: 1. No acute intracranial pathology. 2. Left middle cranial fossa arachnoid cyst. 3. Right frontal and ethmoid sinus disease. DS: Summary Hospital Course Hospital Course: per 07/11 admission note: per CARE team demarcus pt self-presented 07/08 to [facility] ED with family members with family c/o pt's acting funny over the past 4-5 days. family reported pt has been forgetful, asking for questions to be repeated, unsteady on his feet, uncoordinated. pt was chemically restrained with haldol 5 and ativan 1 IV for safety (pt was attempting to pull out IV, get out of bed, appeared disoriented). CARE team was initially unable to engage with pt, who stared blankly at CARE team staff in response to questions. by 07/10, pt was able to speak with CARE team staff. he denied psych Sx and reported being in a good mood. he did not recall the events leading to his hospitalization and did not know why he was in the hospital. on interview with MD on psych unit, pt spoke haltingly, hesitantly, and without confidence. he reported his mood as not good but denied any safety concerns or psychotic symptoms presently. he did reference he was kind of hearing something recently. he was able to say his sleep was abnormal and he had not been eating the past several days. he denied any psych Hx. he was amenable to taking psychiatric medication and was started on haldol 5 mg QHS for psychosis. Past Psychiatric History: hosps: 1 prior in [facility] in 2021 SA: denies SIB: denies HIB: denies outpt Tx: denies Medical Evaluation Reviewed: Yes [facility] Medical History Back pain Chest pain Family History: denies Social History: born and raised in [facility] with mother and sisters. father left for [place] when pt was 4 yo. [place] the [place] 6 months prior to presentation. living with his father here. was planning to join the . Substance History: denies the use of all substances, including tobacco/nicotine, alcohol, and cannabis. utox NEG. Trauma History: denies Precis: 07/11: psychosis NOS. start haldol 5 mg QHS. add benadryl 50 mg QHS for EPS prophylaxis due to patient's age and gender 07/12: Continue current tx plan. Keeping to self. Pt reports feeling sad and nervous today; pt stated, I feel this way because I've never been to a place like this before . Pt reported he came to the hospital because I was talking to myself. That was the first time I had voices. I was talking to my sister but she lives in [facility]. My dad saw me talking to no one . Pt reports he is hoping to return home soon. denies SI/HI/VH/AH. 07/13: continue current tx plan. Keeping to self. attending groups. pt reports feeling good today; pt stated, I feel like the medicine is helping with my stress . denies SI/HI/VH/AH. 07/14: continue same treatment. The nursing staff reported the patient signed a 3 day notice, he stated that he feels overwhelmed here. The patient has been quiet withdrawn attending to groups, playing cards with peers. On interview the patient denies new symptoms compliant with treatment, no side effects. 07/15: keep same treatment. The nursing staff reported the patient had been common cooperative, future oriented visible in the unit. No new changes in mental status. 07/16: improved, discharged as per plan devised late last week. Time Spent with Patient Time attestation: Total time managing care of this patient today ____ minutes. Time spent: Greater than 30 minutes Discharge Plan Discharge Anticipated Discharge Date/Time: 07/16/23 10:25 Patient Disposition: Home, Self-Care Discharge Diagnosis: Schizophrenia, Paranoid Type Referrals: Therapy & Psychiatry [Other] - 1 Week (*Please present to the clinic during walk in hours Sunday - Sunday 10am - 12pm in order to obtain outpatient mental health treatment. Please bring your ID and insurance information. The appointments are first come first serve so get there early.*) [facility] [Provider Group] - 1 Week (If you need help finding a PCP, give the above number a call. ) Discharge Medications: New haloperidol 5 mg Tablet 5 mg PO BEDTIME 30 Days Qty: 30 0RF diphenhydramine HCl 25 mg Capsule 50 mg PO BEDTIME 30 Days Qty: 60 0RF Continued cyclobenzaprine 10 mg tablet 10 mg PO TID PRN (Reason: muscle spasm) Qty: 20 0RF ibuprofen 600 mg tablet 600 mg PO Q6H PRN (Reason: pain) Qty: 30 0RF Discharge Orders: Discharge Order (Routine); Ordered 07/16/23 Ordered By: Kael Gruber Diet: Advance to usual diet Activity on Discharge: As tolerated Stand Alone Forms: Patient Portal Discharge page, Community Support Care Plan Goals: remain safe and stable in the outpatient treatment setting Health Concerns: none Plan of Treatment: take medications as prescribed, attend appointments as scheduled Assessment: not at imminent risk of harm to self or others Discharge Date/Time: 07/16/23 10:56
== END 2023-07-16 10:56 | disposition home or self-care (01) | DRG 750 ==
LOC: HO.ED 07-10 09:26 → HO.PADLT16 07-10 16:36
PROVIDERS: Emergency Medicine; Admitting Provider Psychiatry & Neurology Psychiatry; Emergency Provider Emergency Medicine; Visit Provider Psychiatry & Neurology Psychiatry
DX: F20.0 Paranoid schizophrenia (principal); Z20.822 Contact with and (suspected) exposure to COVID-19; Z79.899 Other long term (current) drug therapy
CPT/HCPCS: 36415; 70450; 80048; 80061; 80076; 80307; 81001; 82607; 82746; 82947; 83036; 84439; 84443; 85007; 85027; 86704; 86706; 86709; 86780; 86803; 87340; 87389; 87502; 87635; 93005; 99285; J1200; J1630; J2060; S9485

== ENCOUNTER → 2023-07-08 04:36 | Outpatient (BNV) | payer SELFPAY | PROVIDERS: Emergency Provider Emergency Medicine; Visit Provider Internal Medicine Cardiovascular Disease | DX: R41.82 Altered mental status, unspecified (principal) | CPT/HCPCS: 93010 ==

== ENCOUNTER → 2023-07-10 16:26 | Outpatient (BNV) | payer SELFPAY | PROVIDERS: Admitting Provider Psychiatry & Neurology Psychiatry; Emergency Provider Emergency Medicine; Visit Provider Psychiatry & Neurology Psychiatry | DX: F29 Unspecified psychosis not due to a substance or known physiological condition (principal) | CPT/HCPCS: 99222; 99231; 99238 ==

== ENCOUNTER 2023-08-26 07:59 | Inpatient (IN) | payer MEDICAID, OTHER, SELFPAY ==
[2023-08-26 08:08] VITALS: BP 141/77; PULSE 89; RESP 18; TEMP 37.1; O2SAT 100; BMI 21.2
--- NOTE | 2023-08-26 09:27 | ED.GENADULT ---
HPI - General Adult General Chief complaint: Behavioral Concerns Stated complaint: Medication refill? Mood changes Time Seen by Provider: 08/26/23 09:00 Source: patient and RN notes reviewed Mode of arrival: ambulatory Limitations: no limitations History of Present Illness HPI narrative: This is a 23-year-old male, with a past medical history of psychosis with psychiatric hospital admission from July 11 through July 16, who presents to the emergency department accompanied by his father for medication refill. Patient reports that there is no physical complaints that he is having, denies any fevers, chills, chest pain, shortness of breath, abdominal pain, nausea, vomiting or diarrhea. Denies any alcohol or drug use. Father states that he is a otr owner operator truck driver and often times is on the road and was unaware that Jordan needed to follow-up outpatient to get his medications refilled. Patient was discharged on Benadryl and Haldol. Father states that over the last 3 days he has noticed since he has been without his medications he has been much more withdrawn, repeating sentences, and often times does not engage in conversation. Patient denies any suicidal or homicidal ideations. Denies any auditory or visual hallucinations. No other complaints or concerns at this time. MD complaint: Medication Refill Onset (ago): day(s) Relieving factors: none Exacerbating factors: none Associated symptoms: denies other symptoms Treatments prior to arrival: none Related Data Previous Rx's ?Medication ?Instructions ?Recorded cyclobenzaprine 10 mg tablet 10 mg PO TID PRN muscle spasm #20 06/15/23 tabs ibuprofen 600 mg tablet 600 mg PO Q6H PRN pain #30 tabs 06/15/23 diphenhydramine HCl 25 mg capsule 50 mg (2 x 25 mg) PO BEDTIME 30 07/16/23 days #60 caps haloperidol 5 mg tablet 5 mg PO BEDTIME 30 days #30 tabs 07/16/23 Allergies Allergy/AdvReac Type Severity Reaction Status Date / Time No Known Allergies Allergy Verified 08/26/23 08:19 Review of Systems Review of Systems: Yes all other systems are reviewed and are negative Constitutional: Constitutional: Reports as per [facility] Past Medical History Attestation statement: The following information was validated with the patient. Medical History Back pain Chest pain Social History Social History Household Members: Family Housing: Apartment Unable to assess alcohol history related to: Refusing to respond Patient Tobacco Use Status: Never used Tobacco Use of substances other than those prescribed or required for medical reasons: Refusing to respond Advance Directives: No Advance Directives Information Provided: No service: No Sexual orientation: Don't Know Physical Exam ED Vital Signs: Vital Signs - 24 hr 08/26/23 08:08 08/26/23 18:40 Temperature 98.8 F Pulse Rate 89 Respiratory Rate 18 16 Blood Pressure 141/77 H Pulse Oximetry 100 Oxygen Delivery Method Room Air BMI result Body Mass Index 21.2 Const General: cooperative, comfortable and no acute distress Orientation/consciousness: patient oriented x3 Limitations: no limitations HENMT Head: Yes normal to inspection, Yes normocephalic and Yes atraumatic Ears: hearing grossly normal bilaterally General nose exam: Normal external nose present Face and sinus: Yes normal facial exam Mouth: Normal oral and palatal mucosa present, oropharynx normal and moist mucous membranes Throat: Yes posterior oropharynx normal Eyes General: appearance normal, both eyes and all related structures Eyelids: Yes eyelids normal Conjunctivae: conjunctivae normal Sclerae: sclerae normal Pupils: Equal, round and reactive pupils present EOM: EOMs intact bilaterally Neck Neck: Yes normal visual inspection, Yes full ROM and Yes no lymphadenopathy Lymphatic: no lymphadenopathy noted Chest Chest palpation & inspection: normal inspection of the chest Resp Effort & Inspection: normal respiratory effort and able to speak in complete sentences Auscultation: clear to auscultation bilaterally, no crackles, no rales, no rhonchi and no wheezes Cardio Rate: regular rate Rhythm: regular rhythm Heart sounds: S1 normal heart sound present and S2 normal heart sound present GI Other: Abdomen is soft, nontender, nondistended Inspection: Yes normal to inspection Skin General skin exam: no rashes or lesions noted Trauma: no lacerations or abrasions Wounds: no wounds Neuro General: patient oriented x3 and moves all extremities Cranial nerves: Yes Equal, round and reactive pupils present Extrem General: Yes normal to inspection Right upper extremity: normal to inspection Left upper extremity: normal to inspection Right lower extremity: normal to inspection Left lower extremity: normal to inspection Psych Appearance: well kempt Speech and movement: Slowed speech present (Psych) Affect: Labile affect present and Blunted affect present Attitude: Guarded attititude/behavior present and Avoids eye contact (attititude/behavior) Thought process: Tangential thought process present Insight: Limited insight present (Psych) Judgement: Limited judgement present (Psych) Course Reevaluation(s) Reevaluation #1: patient was seen by the care team, bed search initiated. Ordered labs including CBC, chemistry, urine drug screen due to psychiatric inpatient admission requirements. Time: 14:00 Reevaluation #2: Labs returned, hyperkalemic at 5.3, medicated with Kayexalate. EKG ordered Will attempt to obtain repeat CBC, however given that this is a requirement only made by the psychiatric inpatient admission, physician observation initiated. Given signed out to my colleague, Abhijeet Vidal pending repeat CBC and EKG. Time: 19:10 Medical Decision Making Medical Decision Making [facility] Narrative: This is a 23-year-old male, with a history of schizophrenia/psychosis, who presents emergency department accompanied by his father for medication refill. He was previously admitted to the hospital psychiatrically in June and was discharged on Haldol and Benadryl. Father states that his behavior improved while at home while on these medications however since he has been without for the last 3 days he has noticed a change in his behavior, states that he repeats himself, is blunted in affect. Patient has no current complaints. I discussed this case with care team, who will see patient at bedside for further management and assessment. He is alert and oriented x4, vital signs within normal limits. Lungs are clear to auscultation bilaterally, abdomen is soft and nontender. Discussed case with my attending physician, Dr. Jameson, will defer labs and urine at this time. Plan: Care team consult Differential Diagnosis Differential Diagnoses: The differential diagnosis associated with the presentation includes Psychosis, schizophrenia, medication refill, depression, anxiety Admission/Observation Consideration of admission/observation: Escalation of care including admission/observation considered Escalation of care including admission/observation required given presentation today. Lab Data [facility] Lab Attestation statement: I reviewed the patient's lab results. Hyperkalemic at 5.3, creatinine 1.04 > consistent with kidney function in the past. Unable to get CBC on patient as patient had multiple attempts difficulty. > will attempt again. 08/26/23 14:09 Labs: Lab Results 08/26/23 Range/Units 14:09 Sodium 144 (135-145) mmol/L Potassium 5.3 H D (3.3-5.1) mmol/L Chloride 108 (96-108) mmol/L Carbon Dioxide 24 (22-29) mmol/L Anion Gap 17 (12-20) BUN 14 (9-16) mg/dL Creatinine 1.04 (0.5-1.4) mg/dL Estim Creat Clear Calc 115.9 Estimated GFR > 60 Random Glucose 105 (60-115) mg/dL Calcium 10.9 H D (8.4-10.2) mg/dL Ethyl Alcohol < 10 mg/dL Discharge Plan Discharge Clinical Impression: Psychosis Patient Disposition: Still a Patient Prescriptions: No Action cyclobenzaprine 10 mg tablet 10 mg PO TID PRN (Reason: muscle spasm) Qty: 20 0RF ibuprofen 600 mg tablet 600 mg PO Q6H PRN (Reason: pain) Qty: 30 0RF haloperidol 5 mg Tablet 5 mg PO BEDTIME 30 Days Qty: 30 0RF diphenhydramine HCl 25 mg Capsule 50 mg PO BEDTIME 30 Days Qty: 60 0RF Print Language: Macedonian
--- NOTE | 2023-08-26 11:08 | PC.NURSE ---
after consulting with provider, pt was not changed over. Dad is sitting at bedside. Pt denies SI/HI. Calm and cooperative, behavior non-concerning. waiting for CARE team.
--- NOTE | 2023-08-26 13:55 | PC.NURSE ---
pt changed over to hospital clothes. Dad at bedside to assist
--- NOTE | 2023-08-26 14:33 | MHC.EDTECH ---
Belongings in locker 11
[2023-08-26 14:37] LABS: Anion Gap 17 (12-20); Blood Urea Nitrogen 14 mg/dL (9-16); Calcium 10.9 mg/dL (8.4-10.2); Carbon Dioxide 24 mmol/L (22-29); Chloride 108 mmol/L (96-108); Creatinine Clr Calc Pharmacy 115.9; Estimated Glomerular Filt Rate > 60; Ethanol < 10 mg/dL; Glucose Random 105 mg/dL (60-115); Potassium 5.3 mmol/L (3.3-5.1); Sodium 144 mmol/L (135-145)
[2023-08-26 18:40] VITALS: RESP 16
--- NOTE | 2023-08-26 18:42 | PC.NURSE ---
Patient brought over from main ER, patient appears very frightened by staff and situation. Patient brought over by wheelchair and needed a considerable amount of 1:1 coaching to get him to feel comfortable sitting in 5. Pt is now sitting on edge of bed in 5, continues to appear scared, unwilling to participate in conversation, occasionally stuttering words but unable to form full sentences. Per CARE team patient is IPLOC
--- NOTE | 2023-08-26 19:34 | PC.NURSE ---
patient appears as highly nervous, paces in [place] periodically tearful, seeming to understand little in the enveironment. seems unlikely that i may be able to get patient to willingly take medications.
--- NOTE | 2023-08-26 21:09 | PC.NURSE ---
patient presented with medication, patient reuqested his father cakked parent, patient seems to be so out of contact that he doesnt understand function of phone. trying to redirect client.
[2023-08-26 21:13] LABS: COVID-19 Test Negative (Negative); IDNOW Serial# 6674DD1D
[2023-08-26 23:08] VITALS: BP 145/82; PULSE 83; RESP 16; TEMP 37.1; O2SAT 100
--- NOTE | 2023-08-27 07:29 | PC.NURSE ---
Assumed care of patient at 0645, patient resting on bed in 5 with father present at bedside, appears to be in no apparent distress at this time. continue plan of care for inpatient bedsearch
[2023-08-27 08:08] VITALS: BP 136/93; PULSE 86; RESP 18
--- NOTE | 2023-08-27 08:19 | PC.NURSE ---
Patient extremely guarded, unwilling to allow blood work, or complete set of vitals. When ALEXA Mireles entered room to do vital signs he became worried and when she was walking out of the room, he grabbed ahold of her sleeve and would not let her go. Patient eventually redirected and let go of her sleeve. Now resting on chair in room
--- NOTE | 2023-08-27 08:33 | PC.NURSE ---
attempted ekg, no success. patient continues to be extremely paranoid and guarded
[2023-08-27] MEDS: LORazepam 1 MG TABLET PO ×2 (16:12→21:30)
[2023-08-27] MEDS: HaloperidoL 5 MG TABLET PO ×2 (16:12→21:30)
--- NOTE | 2023-08-27 17:35 | PM.EVENT ---
Documented by User: Shelly Hazel NP 08/27/23 17:44 Event Note Date of Service: 08/27/23 Event Note: Per nursing staff, patient arrived to unit via wheelchair with security. Pt would not get out of wheelchair despite numerous attempts by staff. Security put hands on patient to assist in getting up from chair at 1535. Physical hold ended at 1537. Pt seen at 1600 by T/W. Time Spent With Patient Time: Total time managing care of this patient today _15___ minutes. Documented by User: Adebayo Montague MD 09/01/23 21:47 Event Note Date of Service: 09/01/23
--- NOTE | 2023-08-27 17:44 | P.HPPS_ITS ---
HPI Date of Service: 08/27/23 Chief Complaint: Crisis Sources of Information: patient interviewed, chart reviewed and crisis/core team assessment reviewed HPI Subjective Notes: Section 12B Narrative: Patient is a 23 year old male with hx of schizophrenia who was brought in by his father d/t erratic behavior secondary to running out of medication. Per crisis report, pt's father reports pt has been displaying erratic behaviors and appearing as he's staring right through you . Pt ran out of medication 3 days ago. He was unaware the previous discharge plan included follow up with outpatient providers to continue medication management. Pt's father reported, pt was very normal until he stopped taking his medications . ER was unable to obtain urine and EKG on admission d/t pt's mental status. pt is on a 12b. Pt was seen on 08/27/2023. During admission assessment, pt presents with flat affect. soft spoken. Using short sentences; thought blocking. intense staring. Pt unable to participate in admission process d/t mental status. He was offered his home medication of Haldol 5mg PO, along with Ativan 1mg PO; after encouragement from staff, pt took medication willingly. Pt placed on 1:1 safety checks d/t disorganization and following staff. Past Psychiatric History: hosps: 1 prior in [facility] in 2021 and 1 at [facility] [place] in 06/2023. SA: denies SIB: denies HIB: denies outpt Tx: denies Medical Evaluation Reviewed: Yes [facility] Medical History Back pain Chest pain Family History: denies Social History: born and raised in [facility] with mother and sisters. father left for [place] when pt was 4 yo. [place] 6 months prior to presentation. living with his father here. was planning to join the . Trauma History: denies Diagnostics Vital Signs (24Hr): Vital Signs - 24 hr 08/26/23 18:40 08/26/23 23:08 08/27/23 08:08 Temperature 98.7 F Pulse Rate 83 86 Respiratory Rate 16 16 18 Blood Pressure 145/82 H 136/93 H Pulse Oximetry 100 Oxygen Delivery Method Room Air Room Air BMI result Body Mass Index 21.2 Labs 08/27/23 18:52 08/28/23 08:04 Labs: Laboratory Results - last 48 hr 08/26/23 08/26/23 14:09 20:48 Sodium 144 Potassium 5.3 H D Chloride 108 Carbon Dioxide 24 Anion Gap 17 BUN 14 Creatinine 1.04 Estim Creat Clear Calc 115.9 Estimated GFR > 60 Random Glucose 105 Calcium 10.9 H D Ethyl Alcohol < 10 COVID-19 ([facility]STIE) Negative COVID-19 Clin Com See Note Meds/Allergies Allergies Allergies Allergy/AdvReac Type Severity Reaction Status Date / Time No Known Allergies Allergy Verified 08/26/23 08:19 Mental Status Exam Mental Status Exam Narrative: Pt is behavior is calm, following staff, intense eye contact; dressed in hospital attire; Speech is slow, low in volume and not pressured; thought blocking, slow to respond; There is no evidence of perceptual disturbance. Assessment & Plan Assessment & Plan (1) Schizophrenia: Status: Acute Code(s): F20.9 - Schizophrenia, unspecified Plan Patient is a 23 year old male with hx of schizophrenia who was brought in by his father d/t erratic behavior secondary to running out of medication. Plan: 12B 1:1 safety checks Continue home medication Start: Ativan 1mg PO BID Referral to outpatient prescriber and therapist discharge planning Patient educated on: medication risk/benefits Informed Consent: further education needed Reason for continued inpatient stay Substantial Risk for: med/psych decompensation Statement Statement: I have reviewed the history and physical and performed a pertinent examination on my patient. No changes have occurred unless specified. If the History and Physical was not performed prior to admission, the Hospitalist's service will be consulted for completing the admission physical. Time Spent With Patient Time: Total time managing care of this patient today _60___ minutes.
[2023-08-27 17:46] VITALS: BMI 21.2
--- NOTE | 2023-08-27 17:48 | PC.ADMIT ---
Jordan was admitted to from [facility] on 08/27/23 at 1535 for treatment of psychosis due to medication noncompliance on a 12b that is up on 08/30/23. Pt initially refused to come up to the unit, and was assisted by 4 security guards and 2 staff. At present, pt is calm but paranoid and suspicious. He appears to have some thought blocking, is slow to respond and appears to have difficulty formulating sentences. He refused to participate in the the admission and skin check. Mood is paranoid and affect is constricted. He does not report any psych symptoms but appears to be internally preoccupied. He does not readily engage in conversation so thought process, appetite, sleep and focus is difficult to assess at this time. He does not appear to be in any acute distress at this time and appears to be appropriate build and stated age. Pt did accept Ativan 1 mg and Haldol 5 mg PO at 1700 with provider at bedside. He does not have a reported history of substance use, his tox screen was not completed due to refusal while in the ED as well as refusal of vitals while in the ED and on the floor. Pt not able to verbalize thoughts of SI/HI and therefore unable to contract for safety. Pt was placed on 1:1 due to confusion/psychosis and for refusal of skin check.
--- NOTE | 2023-08-27 18:10 | PC.NURSE ---
Pt arrived on the unit on M3 at 1535 and was brought up by 4 security guards and 2 staff members via wheelchair. He was redirected multiple times to exit the wheelchair, offered to walk and talk with staff and offered a quiet space. Pt refused all interventions. Security placed pt in physical hold and pt taken out of wheelchair. No injury occured. Physical hold started at 1535 and ended at 1537.
[2023-08-27 19:28] LABS: MANUAL DIFF FLAG NO
[2023-08-27 19:29] LABS: Basophils Absolute Auto 0.1 X10*3/uL (0.0-0.2); Basophils Percent Auto 0.8 % (0-2); Eosinophils Absolute Auto 0.4 X10*3/uL (0.0-0.4); Eosinophils Percent Auto 5.5 % (0-4); Hematocrit 47.3 % (42.0-52.0); Hemoglobin 16.4 g/dl (14.0-18.0); Imm Gran Abs Auto 0.03 X10*3/uL (0.00-0.03); Imm Gran Pct Auto 0.4 % (0.0-0.4); Lymphocytes Absolute Auto 2.3 X10*3/uL (1.2-4.9); Lymphocytes Percent Auto 31.2 % (20-40); Mean Corpuscular HGB Conc 34.7 g/dl (31.0-36.0); Mean Corpuscular Hemoglobin 31.2 pg (27.0-33.0); Mean Corpuscular Volume 89.9 fL (80.0-98.0); Mean Platelet Volume 10.6 fL (9.4-12.4); Monocytes Absolute Auto 0.8 X10*3/uL (0.1-1.2); Monocytes Percent Auto 11.4 % (2-11); Neutrophils Absolute Auto 3.7 x10*3/uL (2.0-8.3); Neutrophils Percent Auto 50.7 % (45-73); Platelet Count 336 X10*3/uL (160-400); Red Blood Count 5.26 X10*6/uL (4.60-5.80); Red Cell Distribution Width 11.9 % (11.0-16.0); White Blood Count 7.3 X10*3/uL (4.8-10.8)
[2023-08-27 20:25] VITALS: BP 119/73; PULSE 110; RESP 18; TEMP 36.9; O2SAT 100
[2023-08-27] MEDS: diphenhydrAMINE HCL 25 MG CAPSULE 50 MG PO (21:30)
--- NOTE | 2023-08-28 | ECG_ITS ---
Test Reason : baseline Blood Pressure : / mmHG Vent. Rate : 087 BPM Atrial Rate : 087 BPM P-R Int : 138 ms QRS Dur : 084 ms QT Int : 352 ms P-R-T Axes : 087 081 067 degrees QTc Int : 423 ms Normal sinus rhythm with sinus arrhythmia Right atrial enlargement Borderline ECG When compared to the previous EKG of No significant changes seen Referred By: Shelly Hazel Electronically Signed By:Dariusz Lemus
[2023-08-28 06:00] VITALS: BP 109/69; PULSE 99; RESP 16; TEMP 36.6; O2SAT 100
[2023-08-28 08:29] LABS: Alanine Aminotransferase 8 U/L (0-40); Albumin Level 4.5 g/dL (3.5-5.0); Alkaline Phosphatase 40 U/L (39-117); Anion Gap 11 (12-20); Aspartate Amino Transferase 15 U/L (5-37); Bilirubin Total 0.9 mg/dL (0.0-1.0); Blood Urea Nitrogen 17 mg/dL (9-16); Calcium 10.7 mg/dL (8.4-10.2); Carbon Dioxide 30 mmol/L (22-29); Chloride 103 mmol/L (96-108); Cholesterol 164 mg/dL (<200); Creatinine Clr Calc Pharmacy 110.6; Estimated Glomerular Filt Rate > 60; Glucose Fasting 95 mg/dL (60-99); HDL Cholesterol 34 mg/dL (>40); LDL Cholesterol Calculated 119 mg/dL (<100); Potassium 4.2 mmol/L (3.3-5.1); Sodium 140 mmol/L (135-145); Total Protein 9.2 g/dL (6.5-8.0); Triglycerides 56 mg/dL (<150)
[2023-08-28] MEDS: LORazepam 1 MG TABLET PO ×2 (09:25→20:23)
[2023-08-28 10:52] LABS: Appearance Urine Clear; Color Urine Dark Yellow; Glucose Urine UA Negative (Negative); Leukocyte Esterase Urine Negative (Negative); Nitrite Urine Negative (Negative); PH 5.5 (5.0-9.0); Specific Gravity - Urine >= 1.030 (1.005-1.025); Urine Blood Negative (Negative); Urine Ketones Negative (Negative); Urine Protein Trace mg/dL (Neg-Trace)
[2023-08-28 11:35] LABS: Amphetamine Screen Urine Not Detected (Not Detect); Barbiturates, Urine Not Detected (Not Detect); Benzodiazepines Screen Urine Not Detected (Not Detect); Cannabinoid Screen Urine Not Detected (Not Detect); Cocaine Screen Urine Not Detected (Not Detect); Fentanyl, urine Not Detected (Not Detect); Opiate Screen Urine Not Detected (Not Detect); Phencyclidine Screen Urine Not Detected (Not Detect)
--- NOTE | 2023-08-28 14:01 | HO.PSYCHPN ---
Subjective Subjective Date of Service: 08/28/23 Reason For Visit: Crisis Subjective Notes: Section 12B Interim History: Reviewed with Dr. Montague. active on unit, attending groups. Pt presenting much improved from yesterday's presentation. Pt reports feeling good today; pt stated, I'm feeling better than yesterday. I don't know how to explain it. I was taking my medication but I didn't have anymore or any refills . Pt denies SI/HI/VH/AH. Pt placed on 15 minute safety checks. Medication Compliance: Yes Side effects from medications: No Attending Groups: Yes Review of Systems Constitutional: Reports as per HPI Eyes: Reports as per HPI Reports as per HPI Cardiovascular: Reports as per HPI Respiratory: Reports as per HPI Gastrointestinal: Reports as per HPI Genitourinary: Reports as per HPI Musculoskeletal: Reports as per HPI Skin/Breast: Reports as per HPI Reports as per HPI Psychiatric: Reports as per HPI Endocrine: Reports as per HPI Hematologic/Lymphatic: Reports as per HPI Allergic/Immunologic: Reports as per HPI Mental Status Exam Mental Status Exam Narrative: Pt is alert and oriented; behavior is cooperative and calm; dressed in hospital attire; mood is described as good ; eye contact appropriate; Speech is normal rate, soft spoken, not pressured; thought process is organized; denies SI/HI/VH/AH. Diagnostics Vital Signs (24Hr): Vital Signs - 24 hr 08/27/23 20:25 08/28/23 06:00 Temperature 98.5 F 97.8 F Pulse Rate 110 H 99 Respiratory Rate 18 16 Blood Pressure 119/73 109/69 Pulse Oximetry 100 100 Oxygen Delivery Method Room Air Room Air BMI result Body Mass Index 21.2 Labs 08/27/23 18:52 08/28/23 08:04 Labs: Laboratory Results - last 48 hr 08/26/23 08/26/23 08/27/23 14:09 20:48 18:52 WBC 7.3 RBC 5.26 Hgb 16.4 Hct 47.3 MCV 89.9 MCH 31.2 MCHC 34.7 RDW 11.9 Plt Count 336 MPV 10.6 Immature Gran % (Auto) 0.4 Neut % (Auto) 50.7 Lymph % (Auto) 31.2 [place] % (Auto) 11.4 H Eos % (Auto) 5.5 H Baso % (Auto) 0.8 Lymph # (Auto) 2.3 [place] # (Auto) 0.8 Eos # (Auto) 0.4 Baso # (Auto) 0.1 Abs Immat Gran (auto) 0.03 Absolute Neuts (auto) 3.7 Absolute Nucleated RBC 0.000 Nucleated RBC % (auto) 0.0 Sodium 144 Potassium 5.3 H D Chloride 108 Carbon Dioxide 24 Anion Gap 17 BUN 14 Creatinine 1.04 Estim Creat Clear Calc 115.9 Estimated GFR > 60 Random Glucose 105 Fasting Glucose Calcium 10.9 H D Total Bilirubin AST ALT Alkaline Phosphatase Total Protein Albumin Triglycerides Cholesterol LDL Cholesterol, Calc HDL Cholesterol Urine Color Urine Appearance Urine pH Ur Specific [place] Urine Protein Urine Glucose (UA) Urine Ketones Urine Blood Urine Nitrite Ur Leukocyte Esterase Urine Opiates Screen Urine Fentanyl Screen Ur Barbiturates Screen Ur Phencyclidine Scrn Ur Amphetamines Screen U Benzodiazepines Scrn Urine Cocaine Screen U Marijuana (THC) Screen Ethyl Alcohol < 10 COVID-19 ([facility]IE) Negative COVID-19 Clin Com See Note 08/28/23 08/28/23 08:04 10:28 WBC RBC Hgb Hct MCV MCH MCHC RDW Plt Count MPV Immature Gran % (Auto) Neut % (Auto) Lymph % (Auto) [place] % (Auto) Eos % (Auto) Baso % (Auto) Lymph # (Auto) [place] # (Auto) Eos # (Auto) Baso # (Auto) Abs Immat Gran (auto) Absolute Neuts (auto) Absolute Nucleated RBC Nucleated RBC % (auto) Sodium 140 Potassium 4.2 D Chloride 103 Carbon Dioxide 30 H Anion Gap 11 L BUN 17 H Creatinine 1.09 Estim Creat Clear Calc 110.6 Estimated GFR > 60 Random Glucose Fasting Glucose 95 Calcium 10.7 H Total Bilirubin 0.9 AST 15 ALT 8 Alkaline Phosphatase 40 Total Protein 9.2 H Albumin 4.5 Triglycerides 56 Cholesterol 164 LDL Cholesterol, Calc 119 H HDL Cholesterol 34 L Urine Color Dark Yellow Urine Appearance Clear Urine pH 5.5 Ur Specific [place] >= 1.030 H Urine Protein Trace Urine Glucose (UA) Negative Urine Ketones Negative Urine Blood Negative Urine Nitrite Negative Ur Leukocyte Esterase Negative Urine Opiates Screen Not Detected Urine Fentanyl Screen Not Detected Ur Barbiturates Screen Not Detected Ur Phencyclidine Scrn Not Detected Ur Amphetamines Screen Not Detected U Benzodiazepines Scrn Not Detected Urine Cocaine Screen Not Detected U Marijuana (THC) Screen Not Detected Ethyl Alcohol COVID-19 ([facility]) COVID-19 Clin Com Medications Medications Current Medications Acetaminophen (Acetaminophen 325 Mg Tablet) 650 mg PO Q6H PRN PRN Reason: Headache/Pain Mild Scale (1-3) Al Hydroxide/Mg Hydroxide (Magnesium Hydrox/Alum Hydrox 30 Ml Oral.Susp) 30 ml PO Q6H PRN PRN Reason: Heartburn/Nausea Cyclobenzaprine HCl (Cyclobenzaprine Hcl 10 Mg Tablet) 10 mg PO TID PRN PRN Reason: muscle spasm Diphenhydramine HCl (Diphenhydramine Hcl 25 Mg Capsule) 50 mg PO BEDTIME [facility] Last Admin: 08/27/23 21:30 Dose: 50 mg Haloperidol (Haloperidol 5 Mg Tablet) 5 mg PO BEDTIME [facility] Last Admin: 08/27/23 21:30 Dose: 5 mg Hydroxyzine HCl (Hydroxyzine Hcl 25 Mg Tablet) 25 mg PO Q6H PRN PRN Reason: Anxiety Ibuprofen (Ibuprofen 600 Mg Tablet) 600 mg PO Q6H PRN PRN Reason: Pain, Moderate(Pain Scale 4-6) Lorazepam (Lorazepam 1 Mg Tablet) 1 mg PO BID [facility] Last Admin: 08/28/23 09:25 Dose: 1 mg Magnesium Hydroxide (Milk Of Magnesia 30 Ml Oral.Susp) 30 ml PO DAILY PRN PRN Reason: Constipation Trazodone HCl (Trazodone Hcl 50 Mg Tablet) 50 mg PO BEDTIME MRX1 PRN PRN Reason: Insomnia Allergies Allergies Allergy/AdvReac Type Severity Reaction Status Date / Time No Known Allergies Allergy Verified 08/26/23 08:19 Assessment & Plan Assessment & Plan (1) Schizophrenia: Status: Acute Code(s): F20.9 - Schizophrenia, unspecified Plan Patient is a 23 year old male with hx of schizophrenia who was brought in by his father d/t erratic behavior secondary to running out of medication. Plan: 12B 1:1 safety checks Continue home medication Start: Ativan 1mg PO BID Referral to outpatient prescriber and therapist discharge planning 08/27: active on unit, attending groups. Pt presenting much improved from yesterday's presentation. Pt reports feeling good today; pt stated, I'm feeling better than yesterday. I don't know how to explain it. I was taking my medication but I didn't have anymore or any refills . Pt denies SI/HI/VH/AH. Pt placed on 15 minute safety checks. UTOX negative for substances. Patient educated on: diagnosis and medication risk/benefits Informed Consent: understands Reason for continued inpatient stay Substantial Risk for: med/psych decompensation Time Spent With Patient Time: Total time managing care of this patient today _20___ minutes.
[2023-08-28 20:00] VITALS: BP 111/75; PULSE 93; RESP 15; TEMP 36.9; O2SAT 97
[2023-08-28] MEDS: HaloperidoL 5 MG TABLET PO (20:23)
[2023-08-28] MEDS: diphenhydrAMINE HCL 25 MG CAPSULE 50 MG PO (20:23)
[2023-08-29 06:00] VITALS: BP 104/67; PULSE 61; RESP 14; TEMP 36.8; O2SAT 100
--- NOTE | 2023-08-29 07:54 | P.PNPSI_ITS ---
Subjective Subjective Date of Service: 08/29/23 Reason For Visit: Crisis Subjective Notes: Section 12B Interim History: Reviewed with Dr. Montague. active on unit, attending groups. Pt reports feeling good today; pt stated, I'm doing good. I want to leave tomorrow. I'm going to continue taking the medication . Pt denies SI/HI/VH/AH. Pt reports he plans on following up with outpatient providers so he does not run out of his medication again. Pt to be discharged tomorrow on 12. Medication Compliance: Yes Side effects from medications: No Attending Groups: Yes Review of Systems Constitutional: Reports as per HPI Eyes: Reports as per HPI Reports as per HPI Cardiovascular: Reports as per HPI Respiratory: Reports as per HPI Gastrointestinal: Reports as per HPI Genitourinary: Reports as per HPI Musculoskeletal: Reports as per HPI Skin/Breast: Reports as per HPI Reports as per HPI Psychiatric: Reports as per HPI Endocrine: Reports as per HPI Hematologic/Lymphatic: Reports as per HPI Allergic/Immunologic: Reports as per HPI Mental Status Exam Mental Status Exam Narrative: Pt is alert and oriented; behavior is cooperative and calm; dressed in hospital attire; mood is described as good ; eye contact appropriate; Speech is normal rate, soft spoken, not pressured; thought process is organized; denies SI/HI/VH/AH. Diagnostics Vital Signs (24Hr): Vital Signs - 24 hr 08/28/23 20:00 08/29/23 06:00 Temperature 98.5 F 98.2 F Pulse Rate 93 61 Respiratory Rate 15 14 Blood Pressure 111/75 104/67 Pulse Oximetry 97 100 Oxygen Delivery Method Room Air Room Air BMI result Body Mass Index 21.2 Labs 08/27/23 18:52 08/28/23 08:04 Labs: Laboratory Results - last 48 hr 08/27/23 08/28/23 08/28/23 18:52 08:04 10:28 WBC 7.3 RBC 5.26 Hgb 16.4 Hct 47.3 MCV 89.9 MCH 31.2 MCHC 34.7 RDW 11.9 Plt Count 336 MPV 10.6 Immature Gran % (Auto) 0.4 Neut % (Auto) 50.7 Lymph % (Auto) 31.2 [place] % (Auto) 11.4 H Eos % (Auto) 5.5 H Baso % (Auto) 0.8 Lymph # (Auto) 2.3 [place] # (Auto) 0.8 Eos # (Auto) 0.4 Baso # (Auto) 0.1 Abs Immat Gran (auto) 0.03 Absolute Neuts (auto) 3.7 Absolute Nucleated RBC 0.000 Nucleated RBC % (auto) 0.0 Sodium 140 Potassium 4.2 D Chloride 103 Carbon Dioxide 30 H Anion Gap 11 L BUN 17 H Creatinine 1.09 Estim Creat Clear Calc 110.6 Estimated GFR > 60 Fasting Glucose 95 Calcium 10.7 H Total Bilirubin 0.9 AST 15 ALT 8 Alkaline Phosphatase 40 Total Protein 9.2 H Albumin 4.5 Triglycerides 56 Cholesterol 164 LDL Cholesterol, Calc 119 H HDL Cholesterol 34 L Urine Color Dark Yellow Urine Appearance Clear Urine pH 5.5 Ur Specific [place] >= 1.030 H Urine Protein Trace Urine Glucose (UA) Negative Urine Ketones Negative Urine Blood Negative Urine Nitrite Negative Ur Leukocyte Esterase Negative Urine Opiates Screen Not Detected Urine Fentanyl Screen Not Detected Ur Barbiturates Screen Not Detected Ur Phencyclidine Scrn Not Detected Ur Amphetamines Screen Not Detected U Benzodiazepines Scrn Not Detected Urine Cocaine Screen Not Detected U Marijuana (THC) Screen Not Detected Medications Medications Current Medications Acetaminophen (Acetaminophen 325 Mg Tablet) 650 mg PO Q6H PRN PRN Reason: Headache/Pain Mild Scale (1-3) Al Hydroxide/Mg Hydroxide (Magnesium Hydrox/Alum Hydrox 30 Ml Oral.Susp) 30 ml PO Q6H PRN PRN Reason: Heartburn/Nausea Cyclobenzaprine HCl (Cyclobenzaprine Hcl 10 Mg Tablet) 10 mg PO TID PRN PRN Reason: muscle spasm Diphenhydramine HCl (Diphenhydramine Hcl 25 Mg Capsule) 50 mg PO BEDTIME [facility] Last Admin: 08/28/23 20:23 Dose: 50 mg Haloperidol (Haloperidol 5 Mg Tablet) 5 mg PO BEDTIME [facility] Last Admin: 08/28/23 20:23 Dose: 5 mg Hydroxyzine HCl (Hydroxyzine Hcl 25 Mg Tablet) 25 mg PO Q6H PRN PRN Reason: Anxiety Ibuprofen (Ibuprofen 600 Mg Tablet) 600 mg PO Q6H PRN PRN Reason: Pain, Moderate(Pain Scale 4-6) Lorazepam (Lorazepam 1 Mg Tablet) 1 mg PO BID [facility] Last Admin: 08/28/23 20:23 Dose: 1 mg Magnesium Hydroxide (Milk Of Magnesia 30 Ml Oral.Susp) 30 ml PO DAILY PRN PRN Reason: Constipation Trazodone HCl (Trazodone Hcl 50 Mg Tablet) 50 mg PO BEDTIME MRX1 PRN PRN Reason: Insomnia Allergies Allergies Allergy/AdvReac Type Severity Reaction Status Date / Time No Known Allergies Allergy Verified 08/26/23 08:19 Assessment & Plan Assessment & Plan (1) Schizophrenia: Status: Acute Code(s): F20.9 - Schizophrenia, unspecified Plan Patient is a 23 year old male with hx of schizophrenia who was brought in by his father d/t erratic behavior secondary to running out of medication. Plan: 12 1:1 safety checks Continue home medication Start: Ativan 1mg PO BID Referral to outpatient prescriber and therapist discharge planning 08/27: active on unit, attending groups. Pt presenting much improved from yesterday's presentation. Pt reports feeling good today; pt stated, I'm feeling better than yesterday. I don't know how to explain it. I was taking my medication but I didn't have anymore or any refills . Pt denies SI/HI/VH/AH. Pt placed on 15 minute safety checks. UTOX negative for substances. 08/28: active on unit, attending groups. Pt reports feeling good today; pt stated, I'm doing good. I want to leave tomorrow. I'm going to continue taking the medication . Pt denies SI/HI/VH/AH. Pt reports he plans on following up with outpatient providers so he does not run out of his medication again. Pt to be discharged tomorrow on 12. Patient educated on: diagnosis and medication risk/benefits Informed Consent: understands Reason for continued inpatient stay Substantial Risk for: stable for discharge Time Spent With Patient Time: Total time managing care of this patient today _20___ minutes.
[2023-08-29] MEDS: LORazepam 1 MG TABLET PO ×2 (08:36→20:27)
[2023-08-29] MEDS: HaloperidoL 5 MG TABLET PO (20:27)
[2023-08-29] MEDS: diphenhydrAMINE HCL 25 MG CAPSULE 50 MG PO (20:27)
[2023-08-29] MEDS: traZODone HCL 50 MG TABLET PO (20:27)
[2023-08-29 22:40] VITALS: BP 119/58; PULSE 86; RESP 16; TEMP 37.1; O2SAT 100
[2023-08-30 06:00] VITALS: BP 100/57; PULSE 80; RESP 16; TEMP 36.4; O2SAT 98
--- NOTE | 2023-08-30 09:32 | P.DS_ITS ---
DS: Providers Provider Date of Service: 08/30/23 Date of admission: 08/27/23 13:08 Date of discharge: 08/30/23 Primary care physician: Unknown Physician Admitting clinician: Shelly Hazel Attending physician on admission: Adebayo Montague Attending physician on discharge: Adebayo Montague Discharging clinician: Shelly Hazel DS: Diagnosis Discharge Diagnosis (1) Schizophrenia: Status: Acute DS: Medications Discharge Medications Home Medications: Previous Rx's ?Medication ?Instructions ?Recorded haloperidol 5 mg tablet 5 mg PO BEDTIME 30 days #30 tabs 08/29/23 Mental Status Exam Mental Status Exam Narrative: Pt is alert and oriented; behavior is cooperative and calm; dressed in hospital attire; mood is described as good ; eye contact appropriate; Speech is normal rate, soft spoken, not pressured; thought process is organized; denies SI/HI/VH/AH. Data Data Completed and Pending Completed studies during hospitalization [Text1]: 08/26/23 08/26/23 08/27/23 14:09 20:48 18:52 WBC 7.3 RBC 5.26 Hgb 16.4 Hct 47.3 MCV 89.9 MCH 31.2 MCHC 34.7 RDW 11.9 Plt Count 336 MPV 10.6 Immature Gran % (Auto) 0.4 Neut % (Auto) 50.7 Lymph % (Auto) 31.2 [place] % (Auto) 11.4 H Eos % (Auto) 5.5 H Baso % (Auto) 0.8 Lymph # (Auto) 2.3 [place] # (Auto) 0.8 Eos # (Auto) 0.4 Baso # (Auto) 0.1 Abs Immat Gran (auto) 0.03 Absolute Neuts (auto) 3.7 Absolute Nucleated RBC 0.000 Nucleated RBC % (auto) 0.0 Sodium 144 Potassium 5.3 H D Chloride 108 Carbon Dioxide 24 Anion Gap 17 BUN 14 Creatinine 1.04 Estim Creat Clear Calc 115.9 Estimated GFR > 60 Random Glucose 105 Fasting Glucose Calcium 10.9 H D Total Bilirubin AST ALT Alkaline Phosphatase Total Protein Albumin Triglycerides Cholesterol LDL Cholesterol, Calc HDL Cholesterol Urine Color Urine Appearance Urine pH Ur Specific [place] Urine Protein Urine Glucose (UA) Urine Ketones Urine Blood Urine Nitrite Ur Leukocyte Esterase Urine Opiates Screen Urine Fentanyl Screen Ur Barbiturates Screen Ur Phencyclidine Scrn Ur Amphetamines Screen U Benzodiazepines Scrn Urine Cocaine Screen U Marijuana (THC) Screen Ethyl Alcohol < 10 COVID-19 ([facility]STIE) Negative COVID-19 Clin Com See Note 08/28/23 08/28/23 08:04 10:28 WBC RBC Hgb Hct MCV MCH MCHC RDW Plt Count MPV Immature Gran % (Auto) Neut % (Auto) Lymph % (Auto) [place] % (Auto) Eos % (Auto) Baso % (Auto) Lymph # (Auto) [place] # (Auto) Eos # (Auto) Baso # (Auto) Abs Immat Gran (auto) Absolute Neuts (auto) Absolute Nucleated RBC Nucleated RBC % (auto) Sodium 140 Potassium 4.2 D Chloride 103 Carbon Dioxide 30 H Anion Gap 11 L BUN 17 H Creatinine 1.09 Estim Creat Clear Calc 110.6 Estimated GFR > 60 Random Glucose Fasting Glucose 95 Calcium 10.7 H Total Bilirubin 0.9 AST 15 ALT 8 Alkaline Phosphatase 40 Total Protein 9.2 H Albumin 4.5 Triglycerides 56 Cholesterol 164 LDL Cholesterol, Calc 119 H HDL Cholesterol 34 L Urine Color Dark Yellow Urine Appearance Clear Urine pH 5.5 Ur Specific [place] >= 1.030 H Urine Protein Trace Urine Glucose (UA) Negative Urine Ketones Negative Urine Blood Negative Urine Nitrite Negative Ur Leukocyte Esterase Negative Urine Opiates Screen Not Detected Urine Fentanyl Screen Not Detected Ur Barbiturates Screen Not Detected Ur Phencyclidine Scrn Not Detected Ur Amphetamines Screen Not Detected U Benzodiazepines Scrn Not Detected Urine Cocaine Screen Not Detected U Marijuana (THC) Screen Not Detected Ethyl Alcohol COVID-19 ([facility]STIE) COVID-19 Clin Com DS: Summary Hospital Course Hospital Course: Patient is a 23 year old male with hx of schizophrenia who was brought in by his father d/t erratic behavior secondary to running out of medication. Per crisis report, pt's father reports pt has been displaying erratic behaviors and appearing as he's staring right through you . Pt ran out of medication 3 days ago. He was unaware the previous discharge plan included follow up with outpatient providers to continue medication management. Pt's father reported, pt was very normal until he stopped taking his medications . ER was unable to obtain urine and EKG on admission d/t pt's mental status. pt is on a 12b. Pt was seen on 08/27/2023. During admission assessment, pt presents with flat affect. soft spoken. Using short sentences; thought blocking. intense staring. Pt unable to participate in admission process d/t mental status. He was offered his home medication of Haldol 5mg PO, along with Ativan 1mg PO; after encouragement from staff, pt took medication willingly. Pt placed on 1:1 safety checks d/t disorganization and following staff. During hospital course, 12B 1:1 safety checks Continue home medication Start: Ativan 1mg PO BID Referral to outpatient prescriber and therapist discharge planning active on unit, attending groups. Pt presenting much improved from yesterday's presentation. Pt reports feeling good today; pt stated, I'm feeling better than yesterday. I don't know how to explain it. I was taking my medication but I didn't have anymore or any refills . Pt denies SI/HI/VH/AH. Pt placed on 15 minute safety checks. UTOX negative for substances. active on unit, attending groups. Pt reports feeling good today; pt stated, I'm doing good. I want to leave tomorrow. I'm going to continue taking the medication . Pt denies SI/HI/VH/AH. Pt reports he plans on following up with outpatient providers so he does not run out of his medication again. Pt to be discharged on 12B. Pt reports feeling good ; states he feels ready to go home. Pt reports he plans on continuing to take his home medication and following up with outpatient providers. denies SI/HI/VH/AH. Time spent discussing smoking cessation with patient: 3 to 10 minutes Status at Discharge Cognitive/behavioral status at discharge: Patient was interviewed prior to discharge and found to be fully oriented and without any SI or HI. Patient has insight and demonstrates good judgment in terms of wanting to pursue treatment. Patient has a safety plan that includes presenting to the closest ER or calling 911 if feeling unsafe. Functional status at discharge: independent ambulation Overall status at discharge: patient is back to baseline Time Spent with Patient Time attestation: Total time managing care of this patient today _30___ minutes. Time spent: Less than 30 minutes Discharge Plan Discharge Anticipated Discharge Date/Time: 08/30/23 11:00 Patient Disposition: Home, Self-Care Discharge Diagnosis: Schizophrenia Referrals: Therapy & Psychiatry [Other] - 1 Week (*Please present to the agency above, Sunday through Sunday during the hours of 10am and 12pm, in order to obtain outpatient mental health providers*) [facility] [Provider Group] - 1 Week Discharge Medications: New haloperidol 5 mg Tablet 5 mg PO BEDTIME 30 Days Qty: 30 0RF Discontinued cyclobenzaprine 10 mg tablet 10 mg PO TID PRN (Reason: muscle spasm) Qty: 20 0RF ibuprofen 600 mg tablet 600 mg PO Q6H PRN (Reason: pain) Qty: 30 0RF haloperidol 5 mg Tablet 5 mg PO BEDTIME 30 Days Qty: 30 0RF diphenhydramine HCl 25 mg Capsule 50 mg PO BEDTIME 30 Days Qty: 60 0RF Discharge Orders: Discharge Order (Routine); Ordered 08/30/23 Ordered By: Shelly Hazel Diet: Regular diet Activity on Discharge: As tolerated Stand Alone Forms: Patient Portal Discharge page, Community Support Print Language: Uzbek Care Plan Goals: Maintain mood and safe behaviors Take medications as prescribed Practice coping skills Continue with outpatient providers and reach out to them as needed Health Concerns: Mood stability and behaviors Plan of Treatment: Follow up with your PCP, psychiatric provider and other outpatient providers regarding above concerns Take medications as prescribed Assessment: Patient was interviewed prior to discharge and found to be fully oriented and without any SI or HI. Patient has insight and demonstrates good judgment in terms of wanting to pursue treatment. Patient has a safety plan that includes presenting to the closest ER or calling 911 if feeling unsafe. Discharge Date/Time: 08/30/23 11:40
[2023-08-30] MEDS: LORazepam 1 MG TABLET PO (09:33)
[2023-08-30] MEDS: Ibuprofen 600 MG TABLET PO (09:37)
== END 2023-08-30 11:40 | disposition home or self-care (01) | DRG 750 ==
LOC: HO.ED 19:29 → HO.PADLT16 08-27 14:15
PROVIDERS: Physician Assistant; Physician Assistant Medical; Admitting Provider Registered Nurse; Emergency Provider Student in an Organized Health Care Education/Training Program; Responsible Provider Registered Nurse; Visit Provider Psychiatry & Neurology Psychiatry
DX: F20.9 Schizophrenia, unspecified (principal); Z20.822 Contact with and (suspected) exposure to COVID-19; Z91.199 Patient's noncompliance with other medical treatment and regimen due to unspecified reason
CPT/HCPCS: 36415; 80048; 80053; 80061; 80307; 81003; 85025; 87635; 93005; 99285; S9485

== ENCOUNTER 2023-08-27 13:08 | Outpatient (BNV) | payer MEDICAID, SELFPAY | END 2023-08-28 10:15 | PROVIDERS: Admitting Provider Registered Nurse; Emergency Provider Student in an Organized Health Care Education/Training Program; Responsible Provider Registered Nurse; Visit Provider Internal Medicine Cardiovascular Disease | DX: F20.9 Schizophrenia, unspecified (principal) | CPT/HCPCS: 93010 ==

== ENCOUNTER → 2023-08-27 13:08 | Outpatient (BNV) | payer SELFPAY | PROVIDERS: Admitting Provider Registered Nurse; Emergency Provider Student in an Organized Health Care Education/Training Program; Responsible Provider Registered Nurse; Visit Provider Registered Nurse | DX: F20.1 Disorganized schizophrenia (principal) | CPT/HCPCS: 99231; 99232; 99233; 99499 ==

== ENCOUNTER 2024-09-08 11:36 | Inpatient (IN) | payer MEDICAID, OTHER, SELFPAY ==
--- NOTE | ~2024-09-08 | XR_ITS ---
CLINICAL HISTORY: Punched wall 3 view right hand Comparison: None Findings: Bones intact. No dislocations. No significant arthritic change. No erosions. No radiopaque foreign body. IMPRESSION: No acute fracture or dislocation. This document has been electronically signed by: Khushboo Yeager DO on 09/14/2024 15:39:03
--- NOTE | ~2024-09-08 | XR_ITS ---
CLINICAL HISTORY: Hit wall with elbow --- Additional Notes or Special Instructions: floor will call b ack 1300 3 view right elbow Comparison: None Findings: No acute fractures. Normal alignment. No significant arthritic change or erosions. No joint effusion. No radiopaque foreign body. IMPRESSION: No acute fracture or dislocation. This document has been electronically signed by: Khushboo Yeager DO on 09/14/2024 15:38:00
[2024-09-08 11:39] VITALS: BP 129/72; PULSE 83; RESP 16; TEMP 36.7; O2SAT 100; BMI 22.0
--- NOTE | 2024-09-08 11:41 | ED_ITS ---
HPI - Psych General Chief Complaint: Psychiatric Symptoms Stated Complaint: crisis Time Seen by Provider: 09/08/24 12:05 Source: patient and RN notes reviewed Mode of arrival: ambulatory Limitations: no limitations History of Present Illness ED Provider: Brie Blum PA-C [facility] Narrative: This is a 24-year-old male, with a past medical history of schizophrenia, who presents emergency department for evaluation. Patient was previously on medications however has been noncompliant, and has had increased depression for the last several days. He denies any suicidal or homicidal ideation. No auditory or visual hallucination. He has no physical complaints. He denies any chest pain, headache, fevers, chills, abdominal pain, nausea, vomiting or diarrhea. No other complaints or concerns at this time. MD complaint: feels depressed Onset (ago): day(s) Duration: constant Relieving factors: medication Exacerbating factors: none Associated psychiatric symptoms: depression Associated symptoms: denies other symptoms Treatments prior to arrival: none Related Data Previous Rx's ?Medication ?Instructions ?Recorded haloperidol 5 mg tablet 5 mg PO BEDTIME 30 days #30 tabs 08/30/23 Allergies Allergy/AdvReac Type Severity Reaction Status Date / Time No Known Allergies Allergy Verified 09/08/24 11:42 Review of Systems 2 Review of Systems: Yes all other systems are reviewed and are negative Constitutional: Constitutional: Reports as per [facility] Past Medical History Attestation statement: The following information was validated with the patient. Medical History Back pain Chest pain Social History Social History Household Members: Family Housing: Apartment Do you presently have visiting nurse or other home services: No Unable to assess alcohol history related to: Refusing to respond Patient Tobacco Use Status: Never used Tobacco Smoked in Last 30 Days: No Use of substances other than those prescribed or required for medical reasons: No Advance Directives: No Advance Directives Information Provided: No service: No Sexual orientation: Don't Know Physical Exam 2 Vital Signs: Vital Signs: Last Vital Signs Temp 98.1 F 09/08/24 11:39 Pulse 83 09/08/24 11:39 Resp 14 09/08/24 12:03 BP 129/72 09/08/24 11:39 Pulse Ox 100 09/08/24 11:39 O2 Del Method Room Air 09/08/24 11:39 BMI result Body Mass Index 22.0 Const: General: cooperative, comfortable and no acute distress O rientation/consciousness: patient oriented x3 Limitations: no limitations HEENT: Head: Yes normal to inspection, Yes normocephalic and Yes atraumatic Ears: hearing grossly normal bilaterally General nose exam: Normal external nose present Face and sinus: Yes normal facial exam Mouth: Normal oral and palatal mucosa present, oropharynx normal and moist mucous membranes Throat: Yes posterior oropharynx normal Eyes: General: appearance normal, both eyes and all related structures E yelids: Yes eyelids normal Conjunctivae: conjunctivae normal Sclerae: s clerae normal Pupils: Equal, round and reactive pupils present EOM: EOMs intact bilaterally Neck: Neck: Yes normal visual inspection, Yes full ROM and Yes no lymphadenopathy Lymphatic: no lymphadenopathy noted Chest: Chest palpation & inspection: normal inspection of the chest Resp: Effort & Inspection: normal respiratory effort and able to speak in complete sentences Auscultation: clear to auscultation bilaterally, no crackles, no rales, no rhonchi and no wheezes Cardio: Rate: regular rate Rhythm: regular rhythm Heart sounds: S1 normal heart sound present and S2 normal heart sound present GI: Inspection: Yes normal to inspection Skin: General skin exam: no rashes or lesions noted Trauma: no lacerations or abrasions Wounds: no wounds Neuro: General: patient oriented x3 and moves all extremities Cranial nerves: Yes Equal, round and reactive pupils present Extrem: General: Yes normal to inspection Right upper extremity: normal to inspection Left upper extremity: normal to inspection Right lower extremity: normal to inspection Left lower extremity: normal to inspection Psych: Appearance: well kempt Mental Status: mental status grossly normal Speech and movement: Slowed speech present (Psych) Affect: Labile affect present Attitude: Guarded attititude/behavior present and Avoids eye contact (attititude/behavior) Thought process: Normal thought process present T hought content: Normal thought content present Insight: Limited insight present (Psych) Judgement: Limited judgement present (Psych) Course Course Course Narrative: This is a rapid medical exam performed by Radha Laguna NP: Additional HPI, ROS, PE not included below will be deferred to primary provider. Patient is a 24-year-old male with history of schizophrenia presenting to the emergency department with complaint of depression. Was previously on medication which he states was helpful but he stopped taking it. Denies SI, HI, AH, VH, denies drug or alcohol use. Plan: med clearance then CARE team eval Reevaluation(s) Reevaluation #1: Labs returned, no leukocytosis, chemistry with no significant electrolyte derangement. Urine does not appear to be infected. U tox negative. Ethyl alcohol less than 10. COVID, flu, and RSV test is negative. At this time, patient was medically cleared awaiting care team consultation in evaluation. Patient will be placed in physician observation awaiting care team consult. Time: 13:14 Medical Decision Making Medical Decision Making [facility] Narrative: This is a 24-year-old male who presents emergency department for evaluation of depression. On arrival, vital signs within normal limits. He is speaking in short, mono tone sentences. Patient reports that he has not been compliant with the medications he was previously taking when he was admitted psychiatrically. Patient was last psychiatrically admitted here last year. He denies any suicidal or homicidal ideation. No auditory or visual hallucinations. He has no physical complaints. Differential diagnoses include depression, anxiety, psychosis, schizoaffective disorder SI, HI. Differential Diagnosis Differential Diagnoses: The differential diagnosis associated with the presentation includes See above Admission/Observation Consideration of admission/observation: Escalation of care including admission/observation considered Lab Data [facility] Lab Attestation statement: I reviewed the patient's lab results. No leukocytosis, stable H&H, no significant electrolyte derangement. No evidence of HALIE, U tox with no findings. Negative ethyl alcohol. 09/08/24 11:50 09/08/24 11:50 Labs: Lab Results 09/08/24 09/08/24 Range/Units 11:50 12:04 WBC 5.8 (4.8-10.8) X10*3/uL RBC 4.73 (4.60-5.80) X10*6/uL Hgb 14.9 (14.0-18.0) g/dl Hct 43.2 (42.0-52.0) % MCV 91.3 (80.0-98.0) fL MCH 31.5 (27.0-33.0) pg MCHC 34.5 (31.0-36.0) g/dl RDW 11.7 (11.0-16.0) % Plt Count 328 (160-400) X10*3/uL MPV 9.6 (9.4-12.4) fL Immature Gran % (Auto) 0.3 (0.0-0.4) % Neut % (Auto) 66.0 (45-73) % Lymph % (Auto) 20.3 (20-40) % [place] % (Auto) 9.4 (2-11) % Eos % (Auto) 3.3 (0-4) % Baso % (Auto) 0.7 (0-2) % Lymph # (Auto) 1.2 (1.2-4.9) X10*3/uL [place] # (Auto) 0.5 (0.1-1.2) X10*3/uL Eos # (Auto) 0.2 (0.0-0.4) X10*3/uL Baso # (Auto) 0.0 (0.0-0.2) X10*3/uL Abs Immat Gran (auto) 0.02 (0.00-0.03) X10*3/uL Absolute Neuts (auto) 3.8 (2.0-8.3) x10*3/uL Absolute Nucleated RBC 0.000 (0.0-0.012) X10*3/uL Nucleated RBC % (auto) 0.0 (0.0-0.2) /100WBC Sodium 142 (135-145) mmol/L Potassium 3.8 (3.3-5.1) mmol/L Chloride 106 (96-108) mmol/L Carbon Dioxide 28 (22-29) mmol/L Anion Gap 12 (12-20) BUN 8 L (9-16) mg/dL Creatinine 1.13 (0.5-1.4) mg/dL Estim Creat Clear Calc 109.8 Estimated GFR > 60 Random Glucose 79 (60-115) mg/dL Calcium 9.9 D (8.4-10.2) mg/dL Total Bilirubin 0.4 (0.0-1.0) mg/dL AST 27 (5-37) U/L ALT 15 (0-40) U/L Alkaline Phosphatase 36 L (39-117) U/L Total Protein 8.0 (6.5-8.0) g/dL Albumin 4.5 (3.5-5.0) g/dL Urine Color Yellow Urine Appearance Clear Urine pH 7.5 (5.0-9.0) Ur Specific [place] <= 1.005 (1.005-1.025) Urine Protein Negative (Neg-Trace) mg/dL Urine Glucose (UA) Negative (Negative) mg/dL Urine Ketones Negative (Negative) mg/dL Urine Blood Negative (Negative) Urine Nitrite Negative (Negative) Ur Leukocyte Esterase Negative (Negative) Urine Opiates Screen Not Detected (Not Detect) Ur Buprenorphine Scrn Not Detected (Not Detect) ng/mL Ur Oxycodone Screen Not Detected (Not Detect) ng/mL Urine Methadone Screen Not Detected (Not Detect) ng/mL Urine Fentanyl Screen Not Detected (Not Detect) Ur Barbiturates Screen Not Detected (Not Detect) Ur Phencyclidine Scrn Not Detected (Not Detect) Ur Amphetamines Screen Not Detected (Not Detect) U Benzodiazepines Scrn Not Detected (Not Detect) Urine Cocaine Screen Not Detected (Not Detect) U Marijuana (THC) Screen Not Detected (Not Detect) Ethyl Alcohol < 10 mg/dL Influenza Type A (PCR) NEGATIVE (Negative) Influenza Type B (PCR) NEGATIVE (Negative) RSV RNA Qual (PCR) NEGATIVE (Negative) SARS-CoV-2 RNA (RT-PCR) NEGATIVE (Negative) Radiology Impression Discussion of test interpretation with radiology: I have reviewed the radiologist's reading. External Record Review External record reviewed: Inpatient record, Office record, Outpatient record, Prior outpatient labs, Prior outpatient radiology, Primary care record and Outside ED record Discharge Plan Discharge Clinical Impression: Depression, Schizophrenia Prescriptions: No Action haloperidol 5 mg Tablet 5 mg PO BEDTIME 30 Days Qty: 30 0RF Interventions: Reading-Suicide Risk Severity Scale Last Done: 09/08/24 12:03 Print Language: Yoruba
[2024-09-08 11:57] LABS: MANUAL DIFF FLAG NO
[2024-09-08 11:59] LABS: Basophils Percent Auto 0.7 % (0-2); Eosinophils Absolute Auto 0.2 X10*3/uL (0.0-0.4); Eosinophils Percent Auto 3.3 % (0-4); Hematocrit 43.2 % (42.0-52.0); Hemoglobin 14.9 g/dl (14.0-18.0); Imm Gran Abs Auto 0.02 X10*3/uL (0.00-0.03); Imm Gran Pct Auto 0.3 % (0.0-0.4); Lymphocytes Absolute Auto 1.2 X10*3/uL (1.2-4.9); Lymphocytes Percent Auto 20.3 % (20-40); Mean Corpuscular HGB Conc 34.5 g/dl (31.0-36.0); Mean Corpuscular Hemoglobin 31.5 pg (27.0-33.0); Mean Corpuscular Volume 91.3 fL (80.0-98.0); Mean Platelet Volume 9.6 fL (9.4-12.4); Monocytes Absolute Auto 0.5 X10*3/uL (0.1-1.2); Monocytes Percent Auto 9.4 % (2-11); Neutrophils Absolute Auto 3.8 x10*3/uL (2.0-8.3); Platelet Count 328 X10*3/uL (160-400); Red Blood Count 4.73 X10*6/uL (4.60-5.80); Red Cell Distribution Width 11.7 % (11.0-16.0); White Blood Count 5.8 X10*3/uL (4.8-10.8)
[2024-09-08 12:03] VITALS: RESP 14
[2024-09-08 12:11] LABS: Appearance Urine Clear; Color Urine Yellow; Glucose Urine UA Negative (Negative); Leukocyte Esterase Urine Negative (Negative); Nitrite Urine Negative (Negative); PH 7.5 (5.0-9.0); Specific Gravity - Urine <= 1.005 (1.005-1.025); Urine Blood Negative (Negative); Urine Ketones Negative (Negative); Urine Protein Negative (Neg-Trace)
[2024-09-08 12:14] LABS: Alanine Aminotransferase 15 U/L (0-40); Albumin Level 4.5 g/dL (3.5-5.0); Alkaline Phosphatase 36 U/L (39-117); Anion Gap 12 (12-20); Aspartate Amino Transferase 27 U/L (5-37); Bilirubin Total 0.4 mg/dL (0.0-1.0); Blood Urea Nitrogen 8 mg/dL (9-16); Calcium 9.9 mg/dL (8.4-10.2); Carbon Dioxide 28 mmol/L (22-29); Chloride 106 mmol/L (96-108); Creatinine Clr Calc Pharmacy 109.8; Estimated Glomerular Filt Rate > 60; Ethanol < 10 mg/dL; Glucose Random 79 mg/dL (60-115); Potassium 3.8 mmol/L (3.3-5.1); Sodium 142 mmol/L (135-145)
[2024-09-08 12:22] LABS: Amphetamine Screen Urine Not Detected (Not Detect); Barbiturates, Urine Not Detected (Not Detect); Benzodiazepines Screen Urine Not Detected (Not Detect); Buprenorphine Scr Not Detected (Not Detect); Cannabinoid Screen Urine Not Detected (Not Detect); Cocaine Screen Urine Not Detected (Not Detect); Fentanyl, urine Not Detected (Not Detect); Methadone Screen, Urine Not Detected (Not Detect); Opiate Screen Urine Not Detected (Not Detect); Oxycodone Screen Urine Not Detected (Not Detect); Phencyclidine Screen Urine Not Detected (Not Detect)
[2024-09-08 12:41] LABS: Influenza A PCR NEGATIVE (Negative); Influenza B PCR NEGATIVE (Negative); Resp Syncy Virus RNA Qual PCR NEGATIVE (Negative); SARS COV2 PCR INHOUSE NEGATIVE (Negative)
--- NOTE | 2024-09-08 13:29 | MHC.EDTECH ---
Pt's family member Forest Johnson
--- NOTE | 2024-09-08 17:43 | PC.NURSE ---
Pt unable to verify where he gets his medications
[2024-09-08 20:53] VITALS: BP 144/84; PULSE 66; RESP 16; TEMP 36.9; O2SAT 100
[2024-09-09 06:13] VITALS: RESP 16
--- NOTE | 2024-09-09 06:35 | PC.NURSE ---
Patient slept through the night, no distress observed/reported, currently not on any medication, disposition per care team is section 12 inpatient bed search, no behavior and safety concerns at this time, will continue to monitor.
--- NOTE | 2024-09-09 09:06 | ECG_ITS ---
Test Reason : check qt interval Blood Pressure : */* mmHG Vent. Rate : 75 BPM Atrial Rate : 75 BPM P-R Int : 142 ms QRS Dur : 88 ms QT Int : 342 ms P-R-T Axes : 84 77 61 degrees QTcB Int : 381 ms Normal sinus rhythm Biatrial enlargement Abnormal ECG When compared with ECG of 28-Aug-2023 10:15, No significant change was found Referred By: Matt Lilly Electronically Signed By: YADIEL JONES
[2024-09-09 12:08] VITALS: BMI 21.1
[2024-09-09 12:30] VITALS: BP 127/75; PULSE 76; RESP 18; TEMP 37.1; O2SAT 100
--- NOTE | 2024-09-09 14:21 | P.HPPS_ITS ---
HPI Date of Service: 09/09/24 Chief Complaint: Crisis Sources of Information: patient interviewed, chart reviewed and crisis/core team assessment reviewed HPI Subjective Notes: Duran Warning and Conditional Voluntary Narrative: Patient is a 24 year old male with hx of schizophrenia who was brought in to ER by his father's friend d/t depression and auditory hallucinations secondary to medication noncompliance. Per crisis report, patient reports he has been experiencing auditory hallucinations that are negative. Patient appeared to be responding to internal stimuli throughout assessment. He denies SI/HI. Patient reports he is been off of his medications for some time. He threw away his belongings along with some of his medications which is unlike him. History of 2 prior inpatient psychiatric hospitalizations. Denies any substance use. U tox negative. He does not have outpatient psychiatric providers. During admission assessment, patient presents alert and oriented x3. Calm and cooperative. Guarded. Thought blocking at times. Patient reports feeling depressed ; patient stated, I stopped taking my medications. I did not like taking them. I just stopped it. Patient was unable to provide timeframe of the last time he was medication compliant. He denies SI/HI/VH. He reports having auditory hallucinations last week, that are negative and tell him to hurt himself; he denies AH today. Patient reports he would like to be restarted on his home medications. Past Psychiatric History: hosps: 1 prior in [facility] in [address] [facility] in 06/2023. SA: denies SIB: denies outpt Tx: denies Medical Evaluation Reviewed: Yes [facility] Medical History Back pain Chest pain Family History: denies Social History: Lives with father. Single. No kids. Works part-time at [email or web address]. Substance History: Denies Trauma History: yes Diagnostics Vital Signs (24Hr): Vital Signs - 24 hr 09/08/24 20:53 09/09/24 06:13 09/09/24 12:30 Temperature 98.4 F 98.7 F Pulse Rate 66 76 Respiratory Rate 16 16 18 Blood Pressure 144/84 H 127/75 Pulse Oximetry 100 100 Oxygen Delivery Method Room Air Room Air BMI result Body Mass Index 21.1 Labs 09/08/24 11:50 09/08/24 11:50 Labs: Laboratory Results - last 48 hr 09/08/24 09/08/24 11:50 12:04 WBC 5.8 RBC 4.73 Hgb 14.9 Hct 43.2 MCV 91.3 MCH 31.5 MCHC 34.5 RDW 11.7 Plt Count 328 MPV 9.6 Immature Gran % (Auto) 0.3 Neut % (Auto) 66.0 Lymph % (Auto) 20.3 Jay % (Auto) 9.4 Eos % (Auto) 3.3 Baso % (Auto) 0.7 Lymph # (Auto) 1.2 Jay # (Auto) 0.5 Eos # (Auto) 0.2 Baso # (Auto) 0.0 Abs Immat Gran (auto) 0.02 Absolute Neuts (auto) 3.8 Absolute Nucleated RBC 0.000 Nucleated RBC % (auto) 0.0 Sodium 142 Potassium 3.8 Chloride 106 Carbon Dioxide 28 Anion Gap 12 BUN 8 L Creatinine 1.13 Estim Creat Clear Calc 109.8 Estimated GFR > 60 Random Glucose 79 Calcium 9.9 D Total Bilirubin 0.4 AST 27 ALT 15 Alkaline Phosphatase 36 L Total Protein 8.0 Albumin 4.5 Urine Color Yellow Urine Appearance Clear Urine pH 7.5 Ur Specific [place] <= 1.005 Urine Protein Negative Urine Glucose (UA) Negative Urine Ketones Negative Urine Blood Negative Urine Nitrite Negative Ur Leukocyte Esterase Negative Urine Opiates Screen Not Detected Ur Buprenorphine Scrn Not Detected Ur Oxycodone Screen Not Detected Urine Methadone Screen Not Detected Urine Fentanyl Screen Not Detected Ur Barbiturates Screen Not Detected Ur Phencyclidine Scrn Not Detected Ur Amphetamines Screen Not Detected U Benzodiazepines Scrn Not Detected Urine Cocaine Screen Not Detected U Marijuana (THC) Screen Not Detected Ethyl Alcohol < 10 Influenza Type A (PCR) NEGATIVE Influenza Type B (PCR) NEGATIVE RSV RNA Qual (PCR) NEGATIVE SARS-CoV-2 RNA (RT-PCR) NEGATIVE Meds/Allergies Meds Home Medications ?Medication ?Instructions ?Recorded ?Confirmed ?Type No Known Home Meds 09/09/24 09/09/24 History Allergies Allergies Allergy/AdvReac Type Severity Reaction Status Date / Time No Known Allergies Allergy Verified 09/08/24 11:42 Mental Status Exam Mental Status Exam Narrative: Pt is alert and oriented; behavior is cooperative and calm, guarded; dressed in casual attire; mood is described as depressed ; eye contact appropriate; Speech is normal rate,low volume and not pressured; thought process is organized, thought blocking at times; Thought content is on tx; otherwise pertinent to relevant topics and without any delusional content, paranoid ideations or grandiosity; denies SI/HI/VH/AH. Assessment & Plan Assessment & Plan (1) Schizophrenia: Status: Acute Code(s): F20.9 - Schizophrenia, unspecified Plan Patient is a 24 year old male with hx of schizophrenia who was brought in to ER by his father's friend d/t depression and auditory hallucinations secondary to medication noncompliance. Plan: CV 15 minute safety checks Obtain collateral Start: Latuda 40mg PO bedtime Ativan 1mg PO bedtime Encourage groups Referral to outpatient psychiatric providers Discharge planning Patient educated on: diagnosis and medication risk/benefits Reason for continued inpatient stay Substantial Risk for: med/psych decompensation Statement Statement: I have reviewed the history and physical and performed a pertinent examination on my patient. No changes have occurred unless specified. If the History and Physical was not performed prior to admission, the Hospitalist's service will be consulted for completing the admission physical. Time Spent With Patient Time: Total time managing care of this patient today _60___ minutes.
--- NOTE | 2024-09-09 16:24 | PC.ADMIT ---
Jordan was admitted to [facility] on a CV for treatment of unspecified psychosis from [facility]. Upon admission assessment, he is calm and cooperative. He is A&0 X4. He reports he was brought into the hospital by his father because he was hearing voices that are negative in nature. He does not disclose specifically what they are saying but he endorses they are self-derogatory. He reports he has been hearing voices since his last admission in 2023. He reports he has been medication non-compliant because he ran out of his medications and never followed up with anyone to get his meds refilled. He does not recall when he last took his meds or what he was taken. He reports his mood is sad and his affect is congruent with his mood. He denies SI/HI/VH but continues to endorse AH. He has some delay in response and often request for this RN to repeat what was just said. His thought process is clear and linear, he has intermittently good eye contact and focus. He denies He appears to be responding to internal stimuli at times, often looking around. He denies sleep or appetite disturbances. He reports he has fallen in the past 6 months but does not disclose in what context, he will be a high falls risk. He denies substance use and alcohol use, tox screen was negative. He denies any medical or physical issues. He states his goal of admission is to go home. He reports he is able to go back to his residence when discharged. He was placed on 15 minute checks for safety. Skin check completed by this RN and Klye Lipscomb RN and was unremarkable.
[2024-09-09 20:00] VITALS: BP 129/78; PULSE 79; RESP 16; TEMP 37.1; O2SAT 98
[2024-09-09] MEDS: Lurasidone HCl 40 MG TABLET PO (21:08)
[2024-09-09] MEDS: LORazepam 1 MG TABLET PO (21:08)
[2024-09-10 07:41] VITALS: BP 131/81; PULSE 110; RESP 16; TEMP 36.4; O2SAT 99
[2024-09-10 08:41] LABS: Estimated Average Glucose 77 mg/dL; Hemoglobin A1C 97.9757 umol/L; Hemoglobin A1c % 4.3 % (<6.0); Total Hemoglobin (HGBA1C) 4256.2744 umol/L
[2024-09-10 08:46] LABS: Cholesterol 157 mg/dL (<200); HDL Cholesterol 37 mg/dL (>40); LDL Cholesterol Calculated 102 mg/dL (<100); Triglycerides 93 mg/dL (<150)
[2024-09-10 08:55] LABS: Alanine Aminotransferase 14 U/L (0-40); Albumin Level 4.6 g/dL (3.5-5.0); Alkaline Phosphatase 42 U/L (39-117); Anion Gap 12 (12-20); Aspartate Amino Transferase 19 U/L (5-37); Bilirubin Total 0.7 mg/dL (0.0-1.0); Blood Urea Nitrogen 10 mg/dL (9-16); Carbon Dioxide 30 mmol/L (22-29); Chloride 102 mmol/L (96-108); Creatinine Clr Calc Pharmacy 110.4; Estimated Glomerular Filt Rate > 60; Glucose Random 95 mg/dL (60-115); Potassium 4.2 mmol/L (3.3-5.1); Sodium 140 mmol/L (135-145); Total Protein 8.7 g/dL (6.5-8.0)
--- NOTE | 2024-09-10 13:51 | HO.PSYCHPN ---
Subjective Subjective Date of Service: 09/10/24 Reason For Visit: Crisis Subjective Notes: Conditional Voluntary Interim History: Active on unit, keeping to self. Patient reports feeling okay today; he reports no longer hearing auditory hallucinations. pt stated, they went away . attending groups. per nursing, slept 8 hours. pt denies any side effects from medication. denies SI/HI/VH/AH. Medication Compliance: Yes Side effects from medications: No Attending Groups: Yes Mental Status Exam Mental Status Exam Narrative: Pt is alert and oriented; behavior is cooperative and calm, guarded; dressed in casual attire; mood is described as okay ; eye contact appropriate; Speech is normal rate,low volume and not pressured; thought process is organized, thought blocking at times; Thought content is on tx; denies SI/HI/VH/AH. Diagnostics Vital Signs (24Hr): Vital Signs - 24 hr 09/09/24 20:00 09/10/24 07:41 Temperature 98.7 F 97.6 F Pulse Rate 79 110 H Respiratory Rate 16 16 Blood Pressure 129/78 131/81 Pulse Oximetry 98 99 Oxygen Delivery Method Room Air Room Air BMI result Body Mass Index 21.1 Labs 09/08/24 11:50 09/10/24 08:16 Labs: Laboratory Results - last 48 hr 09/10/24 08:16 Sodium 140 Potassium 4.2 Chloride 102 Carbon Dioxide 30 H Anion Gap 12 BUN 10 Creatinine 1.08 Estim Creat Clear Calc 110.4 Estimated GFR > 60 Random Glucose 95 Estimat Average Glucose 77 Hemoglobin A1c % 4.3 Calcium 10.0 Total Bilirubin 0.7 AST 19 ALT 14 Alkaline Phosphatase 42 Total Protein 8.7 H Albumin 4.6 Triglycerides 93 Cholesterol 157 LDL Cholesterol, Calc 102 H HDL Cholesterol 37 L Medications Medications Current Medications Acetaminophen (Acetaminophen 325 Mg Tablet) 650 mg PO Q6H PRN PRN Reason: Headache/Pain, Scale 1-10 Al Hydroxide/Mg Hydroxide (Magnesium Hydrox/Alum Hydrox 30 Ml Oral.Susp) 30 ml PO Q6H PRN PRN Reason: Heartburn/Nausea Hydroxyzine HCl (Hydroxyzine Hcl 25 Mg Tablet) 25 mg PO Q6H PRN PRN Reason: mild anxiety Lorazepam (Lorazepam 1 Mg Tablet) 1 mg PO BEDTIME SERGIO Last Admin: 09/09/24 21:08 Dose: 1 mg Lurasidone HCl (Lurasidone Hcl 40 Mg Tablet) 40 mg PO BEDTIME SERGIO Last Admin: 09/09/24 21:08 Dose: 40 mg Magnesium Hydroxide (Milk Of Magnesia 30 Ml Oral.Susp) 30 ml PO DAILY PRN PRN Reason: Constipation Nicotine Polacrilex (Nicotine Polacrilex 2 Mg Gum) 4 mg BUCCAL Q2H PRN PRN Reason: Nicotine Cravings Olanzapine (Olanzapine 5 Mg Tablet) 5 mg PO Q4H PRN PRN Reason: agitation/psychosis Trazodone HCl (Trazodone Hcl 50 Mg Tablet) 50 mg PO BEDTIME MRX1 PRN PRN Reason: Insomnia Allergies Allergies Allergy/AdvReac Type Severity Reaction Status Date / Time No Known Allergies Allergy Verified 09/08/24 11:42 Assessment & Plan Assessment & Plan (1) Schizophrenia: Status: Acute Code(s): F20.9 - Schizophrenia, unspecified Plan Patient is a 24 year old male with hx of schizophrenia who was brought in to ER by his father's friend d/t depression and auditory hallucinations secondary to medication noncompliance. Plan: CV 15 minute safety checks Obtain collateral Start: Latuda 40mg PO bedtime Ativan 1mg PO bedtime Encourage groups Referral to outpatient psychiatric providers Discharge planning 09/10:Active on unit, keeping to self. Patient reports feeling okay today; he reports no longer hearing auditory hallucinations. pt stated, they went away . attending groups. per nursing, slept 8 hours. pt denies any side effects from medication. denies SI/HI/VH/AH. continue current tx plan Patient educated on: diagnosis and medication risk/benefits Reason for continued inpatient stay Substantial Risk for: med/psych decompensation Time Spent With Patient Time: Total time managing care of this patient today _20___ minutes.
[2024-09-10 20:00] VITALS: BP 130/72; PULSE 81; RESP 14; TEMP 37.1; O2SAT 100
[2024-09-10] MEDS: Lurasidone HCl 40 MG TABLET PO (20:53)
[2024-09-10] MEDS: LORazepam 1 MG TABLET PO (20:53)
[2024-09-11 07:00] VITALS: BMI 21.1
[2024-09-11 07:40] VITALS: BP 114/61; PULSE 100; RESP 14; TEMP 37.1; O2SAT 96
--- NOTE | 2024-09-11 11:30 | P.PNPSI_ITS ---
Subjective Subjective Date of Service: 09/11/24 Reason For Visit: Crisis Subjective Notes: Conditional Voluntary Interim History: Keeping to self in room. Per staff, pt yelled at house keeper when she went into his room to clean. Pt then yelled at [facility] when doing safety checks. When T/W went into patient's room to ask him what was bothering him, he was observed sitting in the dark on his bed; pt shouted and stated, It's none of your business what's going on! I don't need anything! . Patient declined to meet with T/W. RN offered patient PRN medication; pt declined. Start: Haldol 5mg PO bedtime Medication Compliance: Yes Side effects from medications: No Attending Groups: No Mental Status Exam Mental Status Exam Narrative: Pt is alert and oriented; behavior is guarded, yelling; dressed in casual attire; mood not assessed; eye contact appropriate; Speech is normal rate,loud volume and not pressured; unable to obtain full mental status d/t declining to meet with T/W. Diagnostics Vital Signs (24Hr): Vital Signs - 24 hr 09/10/24 20:00 09/11/24 07:40 Temperature 98.8 F 98.7 F Pulse Rate 81 100 Respiratory Rate 14 14 Blood Pressure 130/72 114/61 Pulse Oximetry 100 96 Oxygen Delivery Method Room Air BMI result Body Mass Index 21.1 Labs 09/08/24 11:50 09/10/24 08:16 Labs: Laboratory Results - last 48 hr 09/10/24 08:16 Sodium 140 Potassium 4.2 Chloride 102 Carbon Dioxide 30 H Anion Gap 12 BUN 10 Creatinine 1.08 Estim Creat Clear Calc 110.4 Estimated GFR > 60 Random Glucose 95 Estimat Average Glucose 77 Hemoglobin A1c % 4.3 Calcium 10.0 Total Bilirubin 0.7 AST 19 ALT 14 Alkaline Phosphatase 42 Total Protein 8.7 H Albumin 4.6 Triglycerides 93 Cholesterol 157 LDL Cholesterol, Calc 102 H HDL Cholesterol 37 L Medications Medications Current Medications Acetaminophen (Acetaminophen 325 Mg Tablet) 650 mg PO Q6H PRN PRN Reason: Headache/Pain, Scale 1-10 Al Hydroxide/Mg Hydroxide (Magnesium Hydrox/Alum Hydrox 30 Ml Oral.Susp) 30 ml PO Q6H PRN PRN Reason: Heartburn/Nausea Haloperidol (Haloperidol 5 Mg Tablet) 5 mg PO TID PRN PRN Reason: agitation Hydroxyzine HCl (Hydroxyzine Hcl 25 Mg Tablet) 25 mg PO Q6H PRN PRN Reason: mild anxiety Lorazepam (Lorazepam 1 Mg Tablet) 1 mg PO BEDTIME [facility] Last Admin: 09/10/24 20:53 Dose: 1 mg Lorazepam (Lorazepam 0.5 Mg Tablet) 0.5 mg PO BID PRN PRN Reason: severe anxiety Lurasidone HCl (Lurasidone Hcl 40 Mg Tablet) 40 mg PO BEDTIME [facility] Last Admin: 09/10/24 20:53 Dose: 40 mg Magnesium Hydroxide (Milk Of Magnesia 30 Ml Oral.Susp) 30 ml PO DAILY PRN PRN Reason: Constipation Trazodone HCl (Trazodone Hcl 50 Mg Tablet) 50 mg PO BEDTIME MRX1 PRN PRN Reason: Insomnia Allergies Allergies Allergy/AdvReac Type Severity Reaction Status Date / Time No Known Allergies Allergy Verified 09/08/24 11:42 Assessment & Plan Assessment & Plan (1) Schizophrenia: Status: Acute Code(s): F20.9 - Schizophrenia, unspecified Plan Patient is a 24 year old male with hx of schizophrenia who was brought in to ER by his father's friend d/t depression and auditory hallucinations secondary to medication noncompliance. Plan: CV 15 minute safety checks Obtain collateral Start: Latuda 40mg PO bedtime Ativan 1mg PO bedtime Encourage groups Referral to outpatient psychiatric providers Discharge planning 09/10:Active on unit, keeping to self. Patient reports feeling okay today; he reports no longer hearing auditory hallucinations. pt stated, they went away . attending groups. per nursing, slept 8 hours. pt denies any side effects from medication. denies SI/HI/VH/AH. continue current tx plan 09/11: Keeping to self in room. Per staff, pt yelled at house keeper when she went into his room to clean. Pt then yelled at [facility] when doing safety checks. When T/W went into patient's room to ask him what was bothering him, he was observed sitting in the dark on his bed; pt shouted and stated, It's none of your business what's going on! I don't need anything! . Patient declined to meet with T/W. RN offered patient PRN medication; pt declined. Start: Haldol 5mg PO bedtime Reason for continued inpatient stay Substantial Risk for: med/psych decompensation Time Spent With Patient Time: Total time managing care of this patient today _15___ minutes.
[2024-09-11] MEDS: LORazepam 1 MG TABLET PO (22:19)
[2024-09-11] MEDS: HaloperidoL 5 MG TABLET PO (22:19)
[2024-09-11] MEDS: Lurasidone HCl 40 MG TABLET PO (22:19)
[2024-09-12 08:00] VITALS: RESP 18
--- NOTE | 2024-09-12 08:56 | P.PNPSI_ITS ---
Subjective Subjective Date of Service: 09/12/24 Reason For Visit: Crisis Subjective Notes: 3 Day Interim History: Keeping to self. calmer today. no outbursts reported. 3 day up on 09/17/24. Patient reports feeling fine ; Pt stated, I was yelling yesterday because I can't be stuck in here. I need to go work . denies SI/HI/VH/AH. Focused on discharge. Medication Compliance: Yes Side effects from medications: No Attending Groups: No Mental Status Exam Mental Status Exam Narrative: Pt is alert and oriented; behavior is calm, guarded; dressed in casual attire; mood is described as fine ; eye contact appropriate; Speech is normal rate, volume and not pressured; thought process is organized; Thought content is on discharge; denies SI/HI/VH/AH. Diagnostics Vital Signs (24Hr): Vital Signs - 24 hr 09/12/24 08:00 Respiratory Rate 18 BMI result Body Mass Index 21.1 Labs 09/08/24 11:50 09/10/24 08:16 Medications Medications Current Medications Acetaminophen (Acetaminophen 325 Mg Tablet) 650 mg PO Q6H PRN PRN Reason: Headache/Pain, Scale 1-10 Al Hydroxide/Mg Hydroxide (Magnesium Hydrox/Alum Hydrox 30 Ml Oral.Susp) 30 ml PO Q6H PRN PRN Reason: Heartburn/Nausea Haloperidol (Haloperidol 5 Mg Tablet) 5 mg PO BEDTIME [facility] Last Admin: 09/11/24 22:19 Dose: 5 mg Haloperidol (Haloperidol 5 Mg Tablet) 5 mg PO BID PRN PRN Reason: agitation Hydroxyzine HCl (Hydroxyzine Hcl 25 Mg Tablet) 25 mg PO Q6H PRN PRN Reason: mild anxiety Lorazepam (Lorazepam 1 Mg Tablet) 1 mg PO BEDTIME [facility] Last Admin: 09/11/24 22:19 Dose: 1 mg Lorazepam (Lorazepam 0.5 Mg Tablet) 0.5 mg PO BID PRN PRN Reason: severe anxiety Lurasidone HCl (Lurasidone Hcl 40 Mg Tablet) 40 mg PO BEDTIME [facility] Last Admin: 09/11/24 22:19 Dose: 40 mg Magnesium Hydroxide (Milk Of Magnesia 30 Ml Oral.Susp) 30 ml PO DAILY PRN PRN Reason: Constipation Trazodone HCl (Trazodone Hcl 50 Mg Tablet) 50 mg PO BEDTIME MRX1 PRN PRN Reason: Insomnia Allergies Allergies Allergy/AdvReac Type Severity Reaction Status Date / Time No Known Allergies Allergy Verified 09/08/24 11:42 Assessment & Plan Assessment & Plan (1) Schizophrenia: Status: Acute Code(s): F20.9 - Schizophrenia, unspecified Plan Patient is a 24 year old male with hx of schizophrenia who was brought in to ER by his father's friend d/t depression and auditory hallucinations secondary to medication noncompliance. Plan: CV 15 minute safety checks Obtain collateral Start: Latuda 40mg PO bedtime Ativan 1mg PO bedtime Encourage groups Referral to outpatient psychiatric providers Discharge planning 09/10:Active on unit, keeping to self. Patient reports feeling okay today; he reports no longer hearing auditory hallucinations. pt stated, they went away . attending groups. per nursing, slept 8 hours. pt denies any side effects from medication. denies SI/HI/VH/AH. continue current tx plan 09/11: Keeping to self in room. Per staff, pt yelled at house keeper when she went into his room to clean. Pt then yelled at [facility] [place] doing safety checks. When T/W went into patient's room to ask him what was bothering him, he was observed sitting in the dark on his bed; pt shouted and stated, It's none of your business what's going on! I don't need anything! . Patient declined to meet with T/W. RN offered patient PRN medication; pt declined. Start: Haldol 5mg PO bedtime 09/12: Keeping to self. calmer today. no outbursts reported. 3 day up on 09/17/24. Patient reports feeling fine ; Pt stated, I was yelling yesterday because I can't be stuck in here. I need to go work . denies SI/HI/VH/AH. Focused on discharge. encouraged to attend groups. Continue current tx plan. Patient educated on: diagnosis, medication risk/benefits and therapeutic strategies Reason for continued inpatient stay Substantial Risk for: med/psych decompensation Time Spent With Patient Time: Total time managing care of this patient today _20___ minutes.
[2024-09-12] MEDS: LORazepam 0.5 MG TABLET PO (21:06)
[2024-09-12] MEDS: HaloperidoL 5 MG TABLET PO ×2 (21:06)
[2024-09-12] MEDS: Lurasidone HCl 40 MG TABLET PO (21:06)
[2024-09-13 07:56] VITALS: BP 110/69; PULSE 86; RESP 16; TEMP 36.9; O2SAT 96
--- NOTE | 2024-09-13 13:43 | P.PNPSI_ITS ---
Subjective Subjective Date of Service: 09/13/24 Reason For Visit: Crisis Interim History: Patient is noted to be irritable and paranoid. Patient reports feeling fine . He had loud outbursts with staff doing checks. He complains of auditory hallucinations. He is guarded. His affect is intense. 3 day up on 09/17/24. Denies SI/HI/VH. Review of Systems Review of Systems Yes all other systems are reviewed and are negative Constitutional: Reports as per HPI Mental Status Exam Mental Status Exam Narrative: Pt is alert and oriented; behavior is calm, guarded; dressed in casual attire; mood is described as fine ; eye contact appropriate; Speech is normal rate, volume and not pressured; thought process is organized; Thought content is on discharge; denies SI/HI/VH/AH. Diagnostics Vital Signs (24Hr): Vital Signs - 24 hr 09/13/24 07:56 Temperature 98.4 F Pulse Rate 86 Respiratory Rate 16 Blood Pressure 110/69 Pulse Oximetry 96 Oxygen Delivery Method Room Air BMI result Body Mass Index 21.1 Labs 09/08/24 11:50 09/10/24 08:16 Medications Medications Current Medications Acetaminophen (Acetaminophen 325 Mg Tablet) 650 mg PO Q6H PRN PRN Reason: Headache/Pain, Scale 1-10 Al Hydroxide/Mg Hydroxide (Magnesium Hydrox/Alum Hydrox 30 Ml Oral.Susp) 30 ml PO Q6H PRN PRN Reason: Heartburn/Nausea Haloperidol (Haloperidol 5 Mg Tablet) 5 mg PO BEDTIME [facility] Last Admin: 09/12/24 21:06 Dose: 5 mg Haloperidol (Haloperidol 5 Mg Tablet) 5 mg PO BID PRN PRN Reason: agitation Last Admin: 09/12/24 21:06 Dose: 5 mg Hydroxyzine HCl (Hydroxyzine Hcl 25 Mg Tablet) 25 mg PO Q6H PRN PRN Reason: mild anxiety Lorazepam (Lorazepam 0.5 Mg Tablet) 0.5 mg PO BEDTIME [facility] Last Admin: 09/12/24 21:06 Dose: 0.5 mg Lurasidone HCl (Lurasidone Hcl 40 Mg Tablet) 40 mg PO BEDTIME [facility] Last Admin: 09/12/24 21:06 Dose: 40 mg Magnesium Hydroxide (Milk Of Magnesia 30 Ml Oral.Susp) 30 ml PO DAILY PRN PRN Reason: Constipation Trazodone HCl (Trazodone Hcl 50 Mg Tablet) 50 mg PO BEDTIME MRX1 PRN PRN Reason: Insomnia Allergies Allergies Allergy/AdvReac Type Severity Reaction Status Date / Time No Known Allergies Allergy Verified 09/08/24 11:42 Assessment & Plan Assessment & Plan (1) Schizophrenia: Status: Acute Code(s): F20.9 - Schizophrenia, unspecified Plan Patient is a 24 year old male with hx of schizophrenia who was brought in to ER by his father's friend d/t depression and auditory hallucinations secondary to medication noncompliance. Plan: CV 15 minute safety checks Obtain collateral Start: Latuda 40mg PO bedtime Ativan 1mg PO bedtime Encourage groups Referral to outpatient psychiatric providers Discharge planning 09/10:Active on unit, keeping to self. Patient reports feeling okay today; he reports no longer hearing auditory hallucinations. pt stated, they went away . attending groups. per nursing, slept 8 hours. pt denies any side effects from medication. denies SI/HI/VH/AH. continue current tx plan 09/11: Keeping to self in room. Per staff, pt yelled at house keeper when she went into his room to clean. Pt then yelled at [facility] [place] when doing safety checks. When T/W went into patient's room to ask him what was bothering him, he was observed sitting in the dark on his bed; pt shouted and stated, It's none of your business what's going on! I don't need anything! . Patient declined to meet with T/W. RN offered patient PRN medication; pt declined. Start: Haldol 5mg PO bedtime 09/12: Keeping to self. calmer today. no outbursts reported. 3 day up on 09/17/24. Patient reports feeling fine ; Pt stated, I was yelling yesterday because I can't be stuck in here. I need to go work . denies SI/HI/VH/AH. Focused on discharge. encouraged to attend groups. Continue current tx plan. 09/13: Increase Haldol to 5 mg BID. Continue Latuda. continue current management and treatment plan. Reason for continued inpatient stay Substantial Risk for: inability to function and rapid decompensation Time Spent With Patient Time: Total time managing care of this patient today ____ minutes.
[2024-09-13] MEDS: HaloperidoL 5 MG TABLET PO ×3 (15:04→21:05)
[2024-09-13] MEDS: Acetaminophen 325 MG TABLET 650 MG PO (15:04)
[2024-09-13 19:40] VITALS: BP 113/58; PULSE 86; RESP 18; TEMP 37.6; O2SAT 99
[2024-09-13] MEDS: Lurasidone HCl 40 MG TABLET PO (21:05)
[2024-09-13] MEDS: LORazepam 0.5 MG TABLET PO (21:05)
[2024-09-13 21:12] VITALS: RESP 18; TEMP 37.4
[2024-09-14 07:39] VITALS: BP 104/60; PULSE 89; RESP 18; TEMP 36.4; O2SAT 100
[2024-09-14] MEDS: HaloperidoL 5 MG TABLET PO ×3 (08:42→21:27)
[2024-09-14] MEDS: hydrOXYzine HCL 25 MG TABLET PO (12:40)
[2024-09-14] MEDS: Acetaminophen 325 MG TABLET 650 MG PO (12:45)
[2024-09-14] MEDS: Ibuprofen 600 MG TABLET PO (13:05)
[2024-09-14] MEDS: LORazepam 1 MG TABLET PO (13:05)
--- NOTE | 2024-09-14 14:28 | HO.PSYCHPN ---
Subjective Subjective Date of Service: 09/14/24 Reason For Visit: Crisis Interim History: Patient was calmer earlier in the day. He reported his voices decreased. He was calm. He is tolerating Haldol. No reported side effects. Slept better last night. Later in the day after lunch he got frustrated because he was hungry and started punching espana and elbowing glass. Security were called. Hand and elbow Xrays ordered and were negative for fractures or dislocations. He remains guarded. 3 day up on 09/17/24. Denies SI/HI/VH. Review of Systems Review of Systems Yes all other systems are reviewed and are negative Constitutional: Reports as per HPI Mental Status Exam Mental Status Exam Narrative: Pt is alert and oriented; behavior is calm, guarded; dressed in casual attire; mood is described as fine ; eye contact appropriate; Speech is normal rate, volume and not pressured; thought process is organized; Thought content is on discharge; denies SI/HI/VH/AH. Diagnostics Vital Signs (24Hr): Vital Signs - 24 hr 09/13/24 19:40 09/13/24 21:12 09/14/24 07:39 Temperature 99.6 F 99.3 F 97.6 F Pulse Rate 86 89 Respiratory Rate 18 18 18 Blood Pressure 113/58 L 104/60 Pulse Oximetry 99 100 Oxygen Delivery Method Room Air Room Air BMI result Body Mass Index 21.1 Labs 09/08/24 11:50 09/10/24 08:16 Medications Medications Current Medications Acetaminophen (Acetaminophen 325 Mg Tablet) 650 mg PO Q6H PRN PRN Reason: Headache/Pain, Scale 1-10 Last Admin: 09/14/24 12:45 Dose: 650 mg Al Hydroxide/Mg Hydroxide (Magnesium Hydrox/Alum Hydrox 30 Ml Oral.Susp) 30 ml PO Q6H PRN PRN Reason: Heartburn/Nausea Haloperidol (Haloperidol 5 Mg Tablet) 5 mg PO BID PRN PRN Reason: agitation Last Admin: 09/14/24 12:40 Dose: 5 mg Haloperidol (Haloperidol 5 Mg Tablet) 5 mg PO BID [facility] Last Admin: 09/14/24 08:42 Dose: 5 mg Hydroxyzine HCl (Hydroxyzine Hcl 25 Mg Tablet) 25 mg PO Q6H PRN PRN Reason: mild anxiety Last Admin: 09/14/24 12:40 Dose: 25 mg Ibuprofen (Ibuprofen 600 Mg Tablet) 600 mg PO Q6H PRN PRN Reason: Pain, Severe (Pain Scale 7-10) Last Admin: 09/14/24 13:05 Dose: 600 mg Lorazepam (Lorazepam 0.5 Mg Tablet) 0.5 mg PO BEDTIME [facility] Last Admin: 09/13/24 21:05 Dose: 0.5 mg Lurasidone HCl (Lurasidone Hcl 40 Mg Tablet) 40 mg PO BEDTIME [facility] Last Admin: 09/13/24 21:05 Dose: 40 mg Magnesium Hydroxide (Milk Of Magnesia 30 Ml Oral.Susp) 30 ml PO DAILY PRN PRN Reason: Constipation Trazodone HCl (Trazodone Hcl 50 Mg Tablet) 50 mg PO BEDTIME MRX1 PRN PRN Reason: Insomnia Allergies Allergies Allergy/AdvReac Type Severity Reaction Status Date / Time No Known Allergies Allergy Verified 09/08/24 11:42 Assessment & Plan Assessment & Plan (1) Schizophrenia: Status: Acute Code(s): F20.9 - Schizophrenia, unspecified Plan Patient is a 24 year old male with hx of schizophrenia who was brought in to ER by his father's friend d/t depression and auditory hallucinations secondary to medication noncompliance. Plan: CV 15 minute safety checks Obtain collateral Start: Latuda 40mg PO bedtime Ativan 1mg PO bedtime Encourage groups Referral to outpatient psychiatric providers Discharge planning 09/10:Active on unit, keeping to self. Patient reports feeling okay today; he reports no longer hearing auditory hallucinations. pt stated, they went away . attending groups. per nursing, slept 8 hours. pt denies any side effects from medication. denies SI/HI/VH/AH. continue current tx plan 09/11: Keeping to self in room. Per staff, pt yelled at house keeper when she went into his room to clean. Pt then yelled at [facility] [place] when doing safety checks. When T/W went into patient's room to ask him what was bothering him, he was observed sitting in the dark on his bed; pt shouted and stated, It's none of your business what's going on! I don't need anything! . Patient declined to meet with T/W. RN offered patient PRN medication; pt declined. Start: Haldol 5mg PO bedtime 09/12: Keeping to self. calmer today. no outbursts reported. 3 day up on 09/17/24. Patient reports feeling fine ; Pt stated, I was yelling yesterday because I can't be stuck in here. I need to go work . denies SI/HI/VH/AH. Focused on discharge. encouraged to attend groups. Continue current tx plan. 09/13: Increase Haldol to 5 mg BID. Continue Latuda. continue current management and treatment plan. : continue current management and treatment plan. Punched wall and elbowed wall and glass. Xrays negative. Consider mood stabilizing medication. Reason for continued inpatient stay Substantial Risk for: harm to self, harm to others, inability to function and rapid decompensation Time Spent With Patient Time: Total time managing care of this patient today ____ minutes.
--- NOTE | 2024-09-14 14:56 | PC.NURSE ---
At approx 1235 pt approached the nurses station and politely requested more food since he had not had enough to eat ( items ordered missing from tray.) I apologized and asked him to tell me what he wanted me to order from kitchen. Pt was struggling to get the words out, became frustrated and started punching and elbowing espana and glass at nurse's station and med room. Security was called to the unit but by the time they arrived he had achieved tension reduction with verbal intervention from nursing staff. He accepted po prn meds haldol, hydroxyzine as well as cold pack. Dr Carroll was informed and additional meds (ativan and ibuprofen) were ordered and given. After pt ate lunch he was taken to xray. While debriefing at 1430 pt told RN I was just so hungry and I couldn't think He recounted issues with his meal tray at meals yesterday and today. I encouraged him to order double portions, ask anytime he feels hungry and told him I would ask for provider about nutrition consult. Lunch Cook informed. Pt was placed on 5 min checks
[2024-09-14] MEDS: Lurasidone HCl 40 MG TABLET PO (21:27)
[2024-09-14] MEDS: LORazepam 0.5 MG TABLET PO (21:27)
[2024-09-14 21:30] VITALS: BP 107/53; PULSE 73; RESP 14; TEMP 36.9; O2SAT 98
[2024-09-15 07:45] VITALS: BP 121/70; PULSE 84; RESP 16; TEMP 36.6; O2SAT 99
[2024-09-15] MEDS: HaloperidoL 5 MG TABLET PO ×3 (08:38→21:43)
--- NOTE | 2024-09-15 10:24 | P.PNPSI_ITS ---
Subjective Subjective Date of Service: 09/15/24 Reason For Visit: Crisis Subjective Notes: 3 Day Interim History: Active on unit. attending groups. Patient reports feeling alright today; discussed incident of becoming upset yesterday and punching wall. Pt stated, I was starving and got upset because I had to wait for my food . Pt was able to acknowledge that his behavior was not okay d/t being hungry. He reports auditory hallucinations went away yesterday and he is trying to stay positive . denies SI/HI/VH/AH. 3 day up on 09/17/24. Medication Compliance: Yes Side effects from medications: No Attending Groups: Yes Mental Status Exam Mental Status Exam Narrative: Pt is alert and oriented; behavior is calm and cooperative; dressed in casual attire; mood is described as good ; eye contact appropriate; Speech is normal rate, volume and not pressured; thought process is organized; Thought content is on discharge; denies SI/HI/VH/AH. Diagnostics Vital Signs (24Hr): Vital Signs - 24 hr 09/14/24 21:30 09/15/24 07:45 Temperature 98.5 F 97.9 F Pulse Rate 73 84 Respiratory Rate 14 16 Blood Pressure 107/53 L 121/70 Pulse Oximetry 98 99 Oxygen Delivery Method Room Air Room Air BMI result Body Mass Index 21.1 Labs 09/08/24 11:50 09/10/24 08:16 Medications Medications Current Medications Acetaminophen (Acetaminophen 325 Mg Tablet) 650 mg PO Q6H PRN PRN Reason: Headache/Pain, Scale 1-10 Last Admin: 09/14/24 12:45 Dose: 650 mg Al Hydroxide/Mg Hydroxide (Magnesium Hydrox/Alum Hydrox 30 Ml Oral.Susp) 30 ml PO Q6H PRN PRN Reason: Heartburn/Nausea Haloperidol (Haloperidol 5 Mg Tablet) 5 mg PO BID PRN PRN Reason: agitation Last Admin: 09/14/24 12:40 Dose: 5 mg Haloperidol (Haloperidol 5 Mg Tablet) 5 mg PO BID [facility] Last Admin: 09/15/24 08:38 Dose: 5 mg Hydroxyzine HCl (Hydroxyzine Hcl 25 Mg Tablet) 25 mg PO Q6H PRN PRN Reason: mild anxiety Last Admin: 09/14/24 12:40 Dose: 25 mg Ibuprofen (Ibuprofen 600 Mg Tablet) 600 mg PO Q6H PRN PRN Reason: Pain, Severe (Pain Scale 7-10) Last Admin: 09/14/24 13:05 Dose: 600 mg Lorazepam (Lorazepam 0.5 Mg Tablet) 0.5 mg PO BEDTIME [facility] Last Admin: 09/14/24 21:27 Dose: 0.5 mg Lurasidone HCl (Lurasidone Hcl 40 Mg Tablet) 40 mg PO BEDTIME [facility] Last Admin: 09/14/24 21:27 Dose: 40 mg Magnesium Hydroxide (Milk Of Magnesia 30 Ml Oral.Susp) 30 ml PO DAILY PRN PRN Reason: Constipation Trazodone HCl (Trazodone Hcl 50 Mg Tablet) 50 mg PO BEDTIME MRX1 PRN PRN Reason: Insomnia Allergies Allergies Allergy/AdvReac Type Severity Reaction Status Date / Time No Known Allergies Allergy Verified 09/08/24 11:42 Assessment & Plan Assessment & Plan (1) Schizophrenia: Status: Acute Code(s): F20.9 - Schizophrenia, unspecified Plan Patient is a 24 year old male with hx of schizophrenia who was brought in to ER by his father's friend d/t depression and auditory hallucinations secondary to medication noncompliance. Plan: CV 15 minute safety checks Obtain collateral Start: Latuda 40mg PO bedtime Ativan 1mg PO bedtime Encourage groups Referral to outpatient psychiatric providers Discharge planning 09/10:Active on unit, keeping to self. Patient reports feeling okay today; he reports no longer hearing auditory hallucinations. pt stated, they went away . attending groups. per nursing, slept 8 hours. pt denies any side effects from medication. denies SI/HI/VH/AH. continue current tx plan 09/11: Keeping to self in room. Per staff, pt yelled at house keeper when she went into his room to clean. Pt then yelled at [facility] [place] when doing safety checks. When T/W went into patient's room to ask him what was bothering him, he was observed sitting in the dark on his bed; pt shouted and stated, It's none of your business what's going on! I don't need anything! . Patient declined to meet with T/W. RN offered patient PRN medication; pt declined. Start: Haldol 5mg PO bedtime 09/12: Keeping to self. calmer today. no outbursts reported. 3 day up on 09/17/24. Patient reports feeling fine ; Pt stated, I was yelling yesterday because I can't be stuck in here. I need to go work . denies SI/HI/VH/AH. Focused on discharge. encouraged to attend groups. Continue current tx plan. 09/13: Increase Haldol to 5 mg BID. Continue Latuda. continue current management and treatment plan. : continue current management and treatment plan. Punched wall and elbowed wall and glass. Xrays negative. Consider mood stabilizing medication. 09/15: Active on unit. attending groups. Patient reports feeling alright today; discussed incident of becoming upset yesterday and punching wall. Pt stated, I was starving and got upset because I had to wait for my food . Pt was able to acknowledge that his behavior was not okay d/t being hungry. He reports auditory hallucinations went away yesterday and he is trying to stay positive . denies SI/HI/VH/AH. 3 day up on 09/17/24. Patient educated on: diagnosis, medication risk/benefits and therapeutic strategies Reason for continued inpatient stay Substantial Risk for: med/psych decompensation Time Spent With Patient Time: Total time managing care of this patient today _20___ minutes.
[2024-09-15] MEDS: Magnesium Hydrox/Alum Hydrox 30 ML ORAL.SUSP PO (12:56)
[2024-09-15] MEDS: hydrOXYzine HCL 25 MG TABLET PO (12:56)
[2024-09-15] MEDS: LORazepam 1 MG TABLET PO (13:02)
[2024-09-15] MEDS: Sennosides 8.6 MG TABLET 17.2 MG PO (17:26)
[2024-09-15 21:40] VITALS: BP 124/63; PULSE 82; RESP 14; TEMP 36.6; O2SAT 99
[2024-09-15] MEDS: Lurasidone HCl 40 MG TABLET PO (21:42)
[2024-09-15] MEDS: LORazepam 0.5 MG TABLET PO (21:43)
[2024-09-16 07:37] VITALS: BP 127/60; PULSE 92; RESP 16; TEMP 36.8; O2SAT 100
[2024-09-16] MEDS: HaloperidoL 5 MG TABLET PO (08:51)
--- NOTE | 2024-09-16 10:23 | PM.PSYDC ---
DS: Providers Provider Date of Service: 09/16/24 Date of admission: 09/09/24 10:48 Date of discharge: 09/16/24 Primary care physician: Unknown Physician Admitting clinician: Shelly Hazel Attending physician on admission: Adebayo Montague Attending physician on discharge: Adebayo Montague Discharging clinician: Shelly Hazel DS: Diagnosis Discharge Diagnosis (1) Schizophrenia: Status: Acute DS: Medications Discharge Medications Home Medications: Home Medications ?Medication ?Instructions ?Recorded ?Confirmed No Known Home Meds 09/09/24 09/09/24 Mental Status Exam Mental Status Exam Narrative: Pt is alert and oriented; behavior is calm and cooperative; dressed in casual attire; mood is described as good ; eye contact appropriate; Speech is normal rate, volume and not pressured; thought process is organized; Thought content is on discharge; denies SI/HI/VH/AH. Data Data Completed and Pending Completed studies during hospitalization [Text1]: 09/10/24 08:16 Sodium 140 Potassium 4.2 Chloride 102 Carbon Dioxide 30 H Anion Gap 12 BUN 10 Creatinine 1.08 Estim Creat Clear Calc 110.4 Estimated GFR > 60 Random Glucose 95 Estimat Average Glucose 77 Hemoglobin A1c % 4.3 Calcium 10.0 Total Bilirubin 0.7 AST 19 ALT 14 Alkaline Phosphatase 42 Total Protein 8.7 H Albumin 4.6 Triglycerides 93 Cholesterol 157 LDL Cholesterol, Calc 102 H HDL Cholesterol 37 L DS: Summary Hospital Course Hospital Course: Patient is a 24 year old male with hx of schizophrenia who was brought in to ER by his father's friend d/t depression and auditory hallucinations secondary to medication noncompliance. Per crisis report, patient reports he has been experiencing auditory hallucinations that are negative. Patient appeared to be responding to internal stimuli throughout assessment. He denies SI/HI. Patient reports he is been off of his medications for some time. He threw away his belongings along with some of his medications which is unlike him. History of 2 prior inpatient psychiatric hospitalizations. Denies any substance use. U tox negative. He does not have outpatient psychiatric providers. During admission assessment, patient presents alert and oriented x3. Calm and cooperative. Guarded. Thought blocking at times. Patient reports feeling depressed ; patient stated, I stopped taking my medications. I did not like taking them. I just stopped it. Patient was unable to provide timeframe of the last time he was medication compliant. He denies SI/HI/VH. He reports having auditory hallucinations last week, that are negative and tell him to hurt himself; he denies AH today. Patient reports he would like to be restarted on his home medications. Plan: CV 15 minute safety checks Obtain collateral Start: Latuda 40mg PO bedtime Ativan 1mg PO bedtime Encourage groups Referral to outpatient psychiatric providers Discharge planning Active on unit, keeping to self. Patient reports feeling okay today; he reports no longer hearing auditory hallucinations. pt stated, they went away . attending groups. per nursing, slept 8 hours. pt denies any side effects from medication. denies SI/HI/VH/AH. continue current tx plan Keeping to self in room. Per staff, pt yelled at house keeper when she went into his room to clean. Pt then yelled at [facility] when doing safety checks. When T/W went into patient's room to ask him what was bothering him, he was observed sitting in the dark on his bed; pt shouted and stated, It's none of your business what's going on! I don't need anything! . Patient declined to meet with T/W. RN offered patient PRN medication; pt declined. Start: Haldol 5mg PO bedtime Keeping to self. calmer today. no outbursts reported. 3 day up on 09/17/24. Patient reports feeling fine ; Pt stated, I was yelling yesterday because I can't be stuck in here. I need to go work . denies SI/HI/VH/AH. Focused on discharge. encouraged to attend groups. Continue current tx plan. Increase Haldol to 5 mg BID. Continue Latuda. continue current management and treatment plan. continue current management and treatment plan. Punched wall and elbowed wall and glass. Xrays negative. Active on unit. attending groups. Patient reports feeling alright today; discussed incident of becoming upset yesterday and punching wall. Pt stated, I was starving and got upset because I had to wait for my food . Pt was able to acknowledge that his behavior was not okay d/t being hungry. He reports auditory hallucinations went away yesterday and he is trying to stay positive . denies SI/HI/VH/AH. 3 day up on 09/17/24. Patient reports feeling good today; focused on discharge and returning to work. Calm and cooperative. denies SI/HI/VH/AH. Patient reports he plans on being medication compliant and following up with outpatient providers. Status at Discharge Cognitive/behavioral status at discharge: Patient has insight and demonstrates good judgment in terms of wanting to pursue treatment. Patient has a safety plan that includes presenting to the closest ER or calling 911 if feeling unsafe. Functional status at discharge: independent ambulation Overall status at discharge: patient is back to baseline Time Spent with Patient Time attestation: Total time managing care of this patient today _20___ minutes. Time spent: Less than 30 minutes Discharge Plan Discharge Anticipated Discharge Date/Time: 09/16/24 12:00 Patient Disposition: Home, Self-Care Discharge Diagnosis: Schizophrenia Referrals: [facility] walk in clinic [Other] - 1 Week (walk in hours are Sunday-Sunday 10am-12pm. [facility] can provide you with outpatient providers. Please bring discharge paperwork, ID, and insurance card with you. ) [facility] [Provider Group] - 1 Week (09-12-24 [facility] was added to patients chart. Please call [phone] to schedule your follow up appt within 7-10 days of discharge.) Discharge Medications: New lurasidone [Latuda] 40 mg Tablet 40 mg PO BEDTIME 30 Days Qty: 30 0RF haloperidol 5 mg Tablet 5 mg PO BID 30 Days Qty: 60 0RF Discharge Orders: Discharge Order (Routine); Ordered 09/16/24 Ordered By: Shelly Hazel Diet: Regular diet Activity on Discharge: As tolerated Stand Alone Forms: Patient Portal Discharge page, Community Support Print Language: Citizen Of [place] Care Plan Goals: Maintain mood and safe behaviors Take medications as prescribed Practice coping skills Continue with outpatient providers and reach out to them as needed Health Concerns: Mood stability and behaviors Plan of Treatment: Follow up with your PCP, psychiatric provider and other outpatient providers regarding above concerns Take medications as prescribed Assessment: Patient has insight and demonstrates good judgment in terms of wanting to pursue treatment. Patient has a safety plan that includes presenting to the closest ER or calling 911 if feeling unsafe.
== END 2024-09-16 12:07 | disposition home or self-care (01) | DRG 750 ==
LOC: HO.ED 14:12 → HO.PADLT16 09-09 11:01
PROVIDERS: Registered Nurse Emergency; Admitting Provider Registered Nurse; Emergency Provider Emergency Medicine; Responsible Provider Registered Nurse; Visit Provider Psychiatry & Neurology Psychiatry
DX: F20.9 Schizophrenia, unspecified (principal); Z91.148 Patient's other noncompliance with medication regimen for other reason; Z20.822 Contact with and (suspected) exposure to COVID-19; Z79.899 Other long term (current) drug therapy
CPT/HCPCS: 0241U; 36415; 73070; 73120; 80053; 80061; 80307; 81003; 83036; 85025; 93005; 99285; S9485

== ENCOUNTER → 2024-09-09 09:06 | Outpatient (BNV) | payer SELFPAY | PROVIDERS: Admitting Provider Registered Nurse; Emergency Provider Emergency Medicine; Visit Provider Internal Medicine | DX: I51.7 Cardiomegaly (principal) | CPT/HCPCS: 93010 ==

== ENCOUNTER 2024-09-09 10:48 | Outpatient (BNV) | payer SELFPAY | END 2024-09-14 14:10 | PROVIDERS: Admitting Provider Registered Nurse; Emergency Provider Emergency Medicine; Responsible Provider Registered Nurse; Visit Provider Radiology Diagnostic Radiology | DX: S59.901A Unspecified injury of right elbow, initial encounter (principal); S69.91XA Unspecified injury of right wrist, hand and finger(s), initial encounter; W19.XXXA Unspecified fall, initial encounter | CPT/HCPCS: 73070; 73120 ==

== ENCOUNTER → 2024-09-09 10:48 | Outpatient (BNV) | payer SELFPAY | PROVIDERS: Admitting Provider Registered Nurse; Emergency Provider Emergency Medicine; Responsible Provider Registered Nurse; Visit Provider Registered Nurse | DX: F20.9 Schizophrenia, unspecified (principal) | CPT/HCPCS: 90792; 99231; 99232; 99238 ==

== ENCOUNTER 2024-10-22 10:09 | Outpatient (REF) | payer MEDICAID, OTHER, SELFPAY ==
--- OUTSIDE RECORDS SUMMARY | 2024-10-22 10:47 | XMS_ITS | Encounter Summary ---
Author Organization [employer] Address [address] [place] [address] Care Team Providers Care Manager Internet Name Role Phone Dilia Ballesteros DO Primary Care Provider + [phone] Reason for Referral * Medications - Pending Review Specialty Diagnoses / Procedures Referred By Contac t Referred To Contact Diagnoses Schizophrenia, unspecified type (CMS/HCC) Dilia Ballesteros DO [address] [place] [address] Phone: tel: fax: Referral ID Status Reason Start Date Expiration Date V isits Requested Visits Authorized [id number] Pending Review 1 1 Reason for Visit * Reason Comments Med Refill Encounter Details Date Type Department Care Team (Late st Contact Info) Description 10/22/2024 9:40 AM EDT Office Visit [facility] [address] [place], [place] [phone] Schizophrenia, unspecified type (CMS/HCC) (Primary Dx) Social History Tobacco Use Types Packs/Day Years Used Date Smoking Tobacco: Never Passive Smoke Exposure: Never Smokeless Tobacco: Never Tobacco Cessation:Counseling Given: Not Answered Sex and Gender Information Value Date Recorded Sex Assigned at Male 10/22/2024 9:03 AM EDT Legal Sex Male 8:54 AM EDT Gender Identity Male 10/22/2024 9:03 AM EDT Sexual Orientation Straight 10/22/2024 9: 03 AM EDT documented as of this encounter Last Filed Vital Signs Vital Sign Reading Time Taken Comments Blood Pressure 148/90 10/22/2024 9:42 AM EDT Pulse 96 10/22/2024 9:42 AM EDT Temperature 36.8 ??C (98.2 ??F) 10/22/2024 9:42 AM EDT Respiratory Rate 18 10/22/2024 9:42 AM EDT Oxygen Saturation 100% 10/22/2024 9:42 AM EDT Inhaled Oxygen Concentration - - Weight 82.5 kg (181 lb 12.8 oz) 10/22/2024 9:42 AM EDT Height 188 cm (6' 2 ) 10/22/2024 9:42 AM EDT Body Mass Index 23.34 10/22/2024 9:42 AM EDT documented in this encounter Plan of Treatment Upcoming Encounters Date Type Department Care Team (Late st Contact Info) Description 12/17/2024 9:00 AM EDT Office Visit [facility] [address] [place], [place] [id number] Dilia Ballesteros DO [address] [place] [address] Scheduled Orders Name Type Priority Associated Diagnoses Orde r Schedule T4, Free Lab Routine Schizophrenia, unspecified type (CMS/HCC) Expected: 10/22/2024 (Approximate), Expires: 10/22/2025 Lipid Panel, Standard Lab Routine Schizophrenia, unspecified type (CMS/HCC) Expected: 10/22/2024 (Approximate), Expires: 10/22/2025 TSH Lab Routine Schizophrenia, unspecified type (CMS/HCC) Expected: 10/22/2024 (Approximate), Expires: 10/22/2025 Vitamin D, 25-Hydroxy, Total, Immunoassay Lab Routine Schizophrenia, unspecified type (CMS/HCC) Expected: 10/22/2024 (Approximate), Expires: 10/22/2025 Hepatic Function Panel Lab Routine Schizophrenia, unspecified type (CMS/HCC) Expected: 10/22/2024 (Approximate), Expires: 10/22/2025 Hemoglobin A1c Lab Routine Schizophrenia, unspecified type (CMS/HCC) Expected: 10/22/2024 (Approximate), Expires: 10/22/2025 CBC Lab Routine Schizophrenia, unspecified type (CMS/HCC) Expected: 10/22/2024, Expires: 10/22/2025 Basic Metabolic Panel Lab Routine Schizophrenia, unspecified type (CMS/HCC) Expected: 10/22/2024 (Approximate), Expires: 10/22/2025 Hepatitis B surface antigen, EIA Lab Routine Schizophrenia, unspecified type (CMS/HCC) Expected: 10/22/2024 (Approximate), Expires: 10/22/2025 Chlamydia/N. Gonorrhoeae RNA, TMA, Urogenitial Microbiology Routine Schizophrenia, unspecified type (CMS/HCC) Ordered: 10/22/2024 HIV-1/2 Antigen and Antibodies, Fourth Generation, with Reflexes Lab Routine Schizophrenia, unspecified type (CMS/HCC) Expected: 10/22/2024 (Approximate), Expires: 10/22/2025 Hepatitis C Antibody with Reflex to HCV, RNA, Quantitative, Real-Time PCR Lab Routine Schizophrenia, unspecified type (CMS/HCC) Expected: 10/22/2024, Expires: 10/22/2025 RPR (Monitor) with Reflex to??Titer Lab Routine Schizophrenia, unspecified type (CMS/HCC) Expected: 10/22/2024, Expires: 10/22/2025 Hepatitis B Surface Antibody, Qualitative Lab Routine Schizophrenia, unspecified type (CMS/HCC) Expected: 10/22/2024 (Approximate), Expires: 10/22/2025 Varicella zoster antibody, IgG Lab Routine Schizophrenia, unspecified type (CMS/HCC) Expected: 10/22/2024 (Approximate), Expires: 10/22/2025 Measles, Mumps, and Rubella (MMR) Antibodies??(IgG) Panel, Immune Status Lab Routine Schizophrenia, unspecified type (CMS/HCC) Expected: 10/22/2024 (Approximate), Expires: 10/22/2025 Hepatitis A Antibody, Total Lab Routine Schizophrenia, unspecified type (CMS/HCC) Expected: 10/22/2024 (Approximate), Expires: 10/22/2025 Hepatitis B Core Antibody, Total Lab Routine Schizophrenia, unspecified type (CMS/HCC) Expected: 10/22/2024 (Approximate), Expires: 10/22/2025 T-SPOT??.TB Lab Routine Schizophrenia, unspecified type (CMS/HCC) Expected: 10/22/2024 (Approximate), Expires: 10/22/2025 documented as of this encounter Visit Diagnoses Diagnosis Schizophrenia, unspecified type (CMS/HCC)- Primary documented in this encounter Care Teams Manager Internet Relationship Specialty Start Date End Date Dilia Ballesteros DO [address] [place] [address] PCP - General Family Medicine 10/22/24 documented as of this encounter
[2024-10-22 11:36] LABS: Hematocrit 43.4 % (42.0-52.0); Hemoglobin 14.7 g/dl (14.0-18.0); Mean Corpuscular HGB Conc 33.9 g/dl (31.0-36.0); Mean Corpuscular Hemoglobin 31.4 pg (27.0-33.0); Mean Corpuscular Volume 92.7 fL (80.0-98.0); Mean Platelet Volume 10.7 fL (9.4-12.4); Platelet Count 326 X10*3/uL (160-400); Red Blood Count 4.68 X10*6/uL (4.60-5.80); Red Cell Distribution Width 11.4 % (11.0-16.0); White Blood Count 7.4 X10*3/uL (4.8-10.8)
[2024-10-22 11:49] LABS: Estimated Average Glucose 77 mg/dL; Hemoglobin A1c % 4.3 % (<6.0); Total Hemoglobin (HGBA1C) 3773.6132 umol/L
[2024-10-22 14:36] LABS: Alanine Aminotransferase 13 U/L (0-40); Albumin Level 4.9 g/dL (3.5-5.0); Alkaline Phosphatase 45 U/L (39-117); Anion Gap 11 (12-20); Aspartate Amino Transferase 22 U/L (5-37); Bilirubin Direct 0.1 mg/dL (0.0-0.5); Bilirubin Total 0.3 mg/dL (0.0-1.0); Blood Urea Nitrogen 11 mg/dL (9-16); Calcium 10.5 mg/dL (8.4-10.2); Carbon Dioxide 30 mmol/L (22-29); Chloride 101 mmol/L (96-108); Cholesterol 179 mg/dL (<200); Estimated Glomerular Filt Rate > 60; Free T4 (Free Thyroxine) 1.17 ng/dL (0.71-1.85); Glucose Random 111 mg/dL (60-115); HDL Cholesterol 42 mg/dL (>40); LDL Cholesterol Calculated 128 mg/dL (<100); Sodium 138 mmol/L (135-145); Thyroid Stimulating Hormone 1.85 uIU/mL (0.32-4.0); Total Protein 8.8 g/dL (6.5-8.0); Triglycerides 48 mg/dL (<150); Vitamin D 25-OH Total 16.1 ng/mL (>30)
[2024-10-23 04:56] LABS: HBS Num1 79.97 mIU/mL (0-7.99); HBc Num1 0.12 S/CO (0.00-0.79); HBsAGNum1 0.35 S/CO (0.00-0.99); HIV AB/AG Nonreactive (Nonreactive); Hepatitis B Core Antibody Nonreactive (Nonreactive); Hepatitis B Surface Antigen Negative (Negative); ~HepC Num1 0.26 S/CO (0.00-0.79); ~Hepatitis B Surface Antibody REACTIVE (Nonreactive); ~Hepatitis C Antibody Nonreactive (Nonreactive)
[2024-10-23 05:24] LABS: Varicella IgG Antibody <1.00 S/CO
[2024-10-23 09:28] LABS: RPR Rapid Plasma Reagin NON-REACTIVE (NON-REACTIVE)
[2024-10-24 05:33] LABS: Hepatitis A Antibody IgG REACTIVE (Nonreactive); ~Hepatitis A Antibody IgG 9.48 S/CO (0.00-0.99)
[2024-10-24 21:18] LABS: TS Negative Control Passed; TS Panel A 1; TS Panel B 0; TS Positive Control Passed; TSpotTB Negative (Negative)
== END 2024-10-22 10:10 | disposition home or self-care (01) ==
LOC: HO.HHCL 10:09
PROVIDERS: Visit Provider Family Medicine
DX: F20.9 Schizophrenia, unspecified (principal)
CPT/HCPCS: 80048; 80061; 80076; 82306; 83036; 84439; 84443; 85027; 86481; 86592; 86704; 86706; 86708; 86735; 86762; 86765; 86787; 86803; 87340; 87389; 87491; 87591